=== PATIENT | female | born 1955 | race Caucasian/White ===

== ENCOUNTER → 2017-11-14 | Outpatient (CLI) | payer BC ==
--- NOTE | 2017-11-14 14:33 | US ---
EXAMINATION TYPE: US gallbladder DATE OF EXAM: 11/14/2017 COMPARISON: CT abdomen March 02, 2016 CLINICAL HISTORY: K81.9 Cholecystitis. EXAM MEASUREMENTS: Liver Length: 11.2 cm Gallbladder Wall: 0.1 cm CBD: 0.3 cm Right Kidney: 9.2 x 4.1 x 4.4 cm Pancreas: Visualized portions wnl, some portions obscured by overlying bowel gas on images saved Liver: wnl Gallbladder: No stones seen Evidence for sonographic Saleh's sign: No CBD: wnl Right Kidney: No hydronephrosis or masses seen IMPRESSION: No shadowing mobile gallstones or ultrasound evidence for acute cholecystitis.
--- NOTE | 2017-11-15 08:52 | NM ---
EXAMINATION TYPE: NM hepatobiliary w EF DATE OF EXAM: 11/14/2017 COMPARISON: Ultrasound gallbladder 11/14/2017 HISTORY: Cholecystitis TECHNIQUE: After the intravenous administration of 4.76 mCi Tc 99m Mebrofenin hepatobiliary scintigra phy is performed. Immediate images post injection. FINDINGS: There is satisfactory initial accumulation of tracer by the liver. The gallbladder is visualized wit hin 12 minutes. The small bowel activity is noted within 46 minutes. At one hour 8 ounces of oral e nsure plus is given to mimic CCK and gallbladder ejection fraction is calculated at 72 %, in the norm al range. Therefore there is no scintigraphic evidence of cystic or common bile duct obstruction to suggest acute cholecystitis or gallbladder dyskinesia. IMPRESSION: Exam is within normal limits.
== END | disposition home or self-care (01) ==
LOC: RADUSWWP 13:52
PROVIDERS: ATTEND Surgery Plastic and Reconstructive Surgery
DX: K81.9 Cholecystitis, unspecified (principal)
CPT/HCPCS: 76705; 78226; A9537

== ENCOUNTER → 2017-11-14 | Outpatient (CLI) | payer BC ==
[2017-11-14 14:55] LABS: HCT 43.4 % (34.0-46.0); HGB 13.7 gm/dL (11.4-16.0); MCH 29.8 pg (25.0-35.0); MCHC 31.6 g/dL (31.0-37.0); MCV 94.3 fL (80.0-100.0); Mean Platelet Volume 6.7; Platelet Count 224 k/uL (150-450); RDW 14.5 % (11.5-15.5)
[2017-11-14 15:06] LABS: Calcium 9.4 mg/dL (8.4-10.2)
== END | disposition home or self-care (01) ==
LOC: LABWHC1 13:50
PROVIDERS: ATTEND Internal Medicine Cardiovascular Disease
DX: E03.9 Hypothyroidism, unspecified (principal)
CPT/HCPCS: 36415; 80048; 80061; 84443; 85027

== ENCOUNTER 2018-01-09 09:54 | Day surgery (SDC) | payer BC ==
[2018-01-06 17:37] VITALS: BMI 18.5
[2018-01-09 11:10] VITALS: RESP 16; TEMP 98.6
[2018-01-09] MEDS ORDERED: LACTATED RINGERS 1,000 ML IV ONE (11:10)
[2018-01-09] MEDS ORDERED: PROPOFOL 10 MG/ML 20 ML VIAL IV ONE (11:41)
[2018-01-09] MEDS ORDERED: LIDOCAINE 1% INJ 10MG/ML (20 ML MDV) ONE (11:41)
[2018-01-09] MEDS ORDERED: IV FLUID CONTINUATION 700 ML IV ONE (12:10)
--- NOTE | 2018-01-09 12:14 | P.PCN ---
Date of Procedure: 01/09/18 Procedure(s) Performed: Procedure: Esophagogastroduodenoscopy and biopsy. Preoperative diagnosis: Nausea and weight loss. Postoperative diagnosis: 1. Small sliding hiatal hernia with no obvious esophagitis or complicated reflux disease. 2. Mild antral gastritis. 3. Multiple biopsies obtained from the duodenum, antrum and esophagus. Preparation sedation: Was provided by anesthesia. Brief clinical history: The patient is a 62-year-old female who is scheduled for this evaluation because of upper abdominal complaints. She describes feeling nausea but no vomiting. This has been going on for 1 year and she lost 10 pounds over that period of time. No change in her bowels or any bleeding. No dysphagia or other alarm symptoms. This evaluation is to assess for potential ulcer disease, reflux disease or other pathology. Procedure: With the patient on her left lateral decubitus position and after informed consent and adequate sedation, I passed the Olympus-GIF 160 video upper endoscope through the cricopharyngeus down the esophagus. GE junction was around 38 cm from the incisors and there was a small sliding hiatal hernia but no obvious esophagitis or complicated reflux disease. The endoscope was then passed into the stomach which was insufflated with air and inspected in detail including the retroflex view in the cardia. There was minimal mottling and erythema in the antrum but no ulcers or erosions. Pyloric channel, duodenal bulb, post bulbar area and descending duodenum appeared within normal limits. Because of her symptoms, I obtained biopsies from the duodenum, antrum and esophagus then the endoscope was withdrawn. The patient tolerated the procedure well. Plan: The patient was reassured. She will follow-up with you as planned and I will be happy to see in the office if her symptoms persist.
[2018-01-09 12:37] VITALS: BP 161/92; PULSE 79
== END 2018-01-09 12:55 | disposition home or self-care (01) ==
LOC: ORWHC2ENDO 09:54
DX: K29.70 Gastritis, unspecified, without bleeding (principal); K44.9 Diaphragmatic hernia without obstruction or gangrene; I10 Essential (primary) hypertension; Z79.899 Other long term (current) drug therapy
CPT/HCPCS: 88305; 43239; J2001; J2704

== ENCOUNTER → 2018-05-15 | Outpatient (CLI) | payer BC ==
--- NOTE | 2018-05-15 11:32 | CT ---
EXAMINATION TYPE: CT abdomen pelvis w con DATE OF EXAM: 05/15/2018 COMPARISON: Prior CT abdomen 03/02/2016 HISTORY: Epigastric abdominal pain CT DLP: 474 mGycm Automated exposure control for dose reduction was used. TECHNIQUE: Helical acquisition of images from the lung bases through the pelvis have been completed. CONTRAST: Performed with Oral Contrast and with IV Contrast, patient injected with 100 ml mL of Isovue 300. FINDINGS: LUNG BASES: No significant abnormality is appreciated. AORTA: No significant abnormality is appreciated. LIVER/GB: No significant abnormality is appreciated. PANCREAS: No significant abnormality is seen. SPLEEN: No significant abnormality is seen. ADRENALS: No significant abnormality is seen. KIDNEYS: Stable exophytic cystic focus at the lower pole of the left kidney, probable cortical cyst a lso associated with the right kidney are stable. REPRODUCTIVE ORGANS: There is a oval calcification measuring approximately 1 cm in the vaginal wall e chocardiogram representing calcified gland cyst. BOWEL: No significant abnormality is seen. Gastric wall thickening is indeterminate, there may be la ck of distention, difficult to exclude gastritis. At the level of the pelvic floor the right of midli ne there is herniation of portion of the sigmoid colon into the ischiorectal fat. FREE AIR: No Free Air visible. ASCITES: None visible. PELVIC ADENOPATHY: None visualized. RETROPERITONEAL ADENOPATHY: No Retroperitoneal Adenopathy visible. URINARY BLADDER: No significant abnormality is seen. OSSEOUS STRUCTURES: There is a scoliotic curvature to the thoracic lumbar spine, degenerative disc c hanges are noted. IMPRESSION: PELVIC FLOOR HERNIA IS PRESENT. FINDINGS IN THE STOMACH DESCRIBED. ADDITIONAL FINDINGS ABOVE.
== END | disposition home or self-care (01) ==
LOC: RADCTMAIN 06:52
PROVIDERS: ATTEND Internal Medicine
DX: K45.8 Other specified abdominal hernia without obstruction or gangrene (principal); R10.13 Epigastric pain; R31.9 Hematuria, unspecified
CPT/HCPCS: 74177; Q9967

== ENCOUNTER → 2018-09-25 | Outpatient (CLI) | payer BC ==
[2018-09-25 13:08] LABS: HCT 45.4 % (34.0-46.0); HGB 14.7 gm/dL (11.4-16.0); MCH 31.1 pg (25.0-35.0); MCHC 32.4 g/dL (31.0-37.0); Mean Platelet Volume 6.7; Platelet Count 316 k/uL (150-450); RBC 4.72 m/uL (3.80-5.40); RDW 15.4 % (11.5-15.5); WBC 6.2 k/uL (3.8-10.6)
[2018-09-25 13:21] LABS: Albumin 4.5 g/dL (3.5-5.0); Calcium 9.6 mg/dL (8.4-10.2); Potassium 4.2 mmol/L (3.5-5.1); Total Bilirubin 0.5 mg/dL (0.2-1.3); Total Protein 7.4 g/dL (6.3-8.2)
[2018-09-25 13:36] LABS: T4, Free (Free Thyroxine) 0.84 ng/dL (0.78-2.19)
--- NOTE | 2018-09-25 15:38 | US ---
EXAMINATION TYPE: US thyroid st tissue head/neck DATE OF EXAM: 09/25/2018 COMPARISON: 2010 CLINICAL HISTORY: E04.9 GOITER. Hoarseness multi nodular thyroid GLAND SIZE: Right Lobe: 5.0 x 2.1 x 1.2 cm Overall Parenchyma: heterogenous Left Lobe: 4.6 x 2.0 x 1.3 cm Overall Parenchyma: heterogeneous Isthmus Thickness: 0.3 cm NODULES RIGHT: # of nodules measured on right: 2 1. 1.4 X 0.7 x 1.3 cm solid nodule at the lower pole with well-defined margins; . This nodule is w ider than tall and shows intranodular vascularity. Prior size: 1.8 x 1.2 x 1.5 cm 2. 0.5 X 0.4 x 0.6 cm mixed nodule at the mid pole with well-defined margins; . This nodule is wide r than tall and shows intranodular vascularity. Prior size: 0.9 x 0.7 x 0.9 cm LEFT: # of nodules measured on left: 2 1. 1.0 X 0.8 x 0.7 cm echogenic nodule at the lower pole with well-defined margins; . This nodule i s wider than tall and shows intranodular vascularity. Prior size: 1.0 x 0.7 x 1.0 cm 2. 1.0 X 0.7 x 0.8 cm solid nodule at the mid pole with well-defined margins; . This nodule is wide r than tall and shows intranodular vascularity. Prior size: 1.2 x 0.9 x 1.0 cm ISTHMUS: # of nodules measured in the isthmus: 0 Bilateral neck scanned, no evidence of lymphadenopathy. IMPRESSION: Multiple thyroid nodules are similar to slightly smaller in size compared to prior exam.
== END | disposition home or self-care (01) ==
LOC: RADUSWWP 12:31
PROVIDERS: ATTEND Internal Medicine Endocrinology, Diabetes & Metabolism
DX: E04.2 Nontoxic multinodular goiter (principal); E04.9 Nontoxic goiter, unspecified; R63.4 Abnormal weight loss; R35.8 Other polyuria; R53.83 Other fatigue; R73.09 Other abnormal glucose
CPT/HCPCS: 36415; 76536; 80053; 82024; 82533; 82607; 83036; 84146; 84439; 84443; 84481; 84681; 85027

== ENCOUNTER → 2018-10-10 | Outpatient (CLI) | payer BC | LOC: LABWHC1 10:15 | PROVIDERS: ATTEND Internal Medicine Endocrinology, Diabetes & Metabolism | DX: R73.09 Other abnormal glucose (principal); R53.83 Other fatigue; E04.9 Nontoxic goiter, unspecified; R63.4 Abnormal weight loss | CPT/HCPCS: 36415; 82947; 84439; 84443; 84481; 84681 ==

== ENCOUNTER → 2018-10-17 | Outpatient (CLI) | payer BC ==
--- NOTE | 2018-10-17 16:19 | FL ---
EXAMINATION TYPE: FL barium swallow DATE OF EXAM: 10/17/2018 CLINICAL HISTORY: Dysphagia food sticking in throat TECHNIQUE: A double contrast esophagram is performed utilizing air and barium. A total of 45 second s of fluoroscopic time was utilized during procedure. Images: 10 COMPARISON: None FINDINGS: Esophagus dilates to normal caliber has normal contour to the gastroesophageal junction. Ga stroesophageal junction opens to normal caliber. No intraluminal or extramural defects are evident. C ontrast passes through the gastroesophageal junction without hesitancy. Couple mild tertiary contract ions are evident during the exam. IMPRESSION: 1. Mild distal presbyesophagus. 2. Otherwise normal esophagram.
== END | disposition home or self-care (01) ==
LOC: RADUSWWP 09:43
PROVIDERS: ATTEND Otolaryngology
DX: K22.8 Other specified diseases of esophagus (principal); R13.10 Dysphagia, unspecified
CPT/HCPCS: 74220

== ENCOUNTER → 2018-10-28 | Outpatient (CLI) | payer BC ==
[2018-10-28 14:55] VITALS: BP 143/90; PULSE 68; RESP 18; TEMP 98.2; BMI 17.2
--- NOTE | 2018-10-28 17:50 | P.HPOB ---
History of Present Illness H&P Date: 10/28/18 Chief Complaint: The patient is here for her routine gynecologic exam and ma mmogram. This is a 63-year-old G3 PIII with an LMP of 2004. The patient is status post vaginal hysterectomy for benign reasons. It has been more than 10 years since her last pelvic exam. She states she had an episode of short but vaginal bleeding about 1 1/2 months ago. She noticed some blood trickling down her leg from the vaginal area after a shower. She denies any recent sexual activity or placing anything into the vagina. She has not had bleeding before or after that episode. She does experience some night sweats in the middle of the night. She also occasionally has sweats during the day. Review of Systems She has lost about 20 pounds over the past couple of years. Her weight has been stable more recently. She denies respiratory or cardiac problems. G.I.: she states sometimes it feels like the food wants to come back up after she eats. She denies vomiting. Past Medical History Past Medical History: COPD, Diabetes Mellitus, GERD/Reflux, Hypertension, Thyroid Disorder Additional Past Medical History / Comment(s): "Borderline diabetes", interstitial cystitis, possible hyperthyroidism, varicose veins. PAST AUTOMOTIVE SALES EXECUTIVE HISTORY: She has no history of STDs. History of Any Multi-Drug Resistant Organisms: None Reported Past Surgical History: Hysterectomy, Orthopedic Surgery, Tubal Ligation Additional Past Surgical History / Comment(s): HEMORRHOIDECTOMY. NASAL FX REPAIR. EXC POLYPS IN THROAT. RT WRIST GANGLION CYST. RT ROTATOR CUFF SURG. Vaginal hysterectomy. 3 breast biopsies Past Anesthesia/Blood Transfusion Reactions: Postoperative Nausea & Vomiting (PONV) Additional Past Anesthesia/Blood Transfusion Reaction / Comment(s): OCC SL NAUSEA. Past Psychological History: No Psychological Hx Reported Smoking Status: Current every day smoker (1 pack per day) Past Alcohol Use History: Occasional (8-10 per week) Additional Past Alcohol Use History / Comment(s): SMOKES 1PPD, FOR 30 YEARS Past Drug Use History: Marijuana Additional Drug Use History / Comment(s): occaisional Additional History: She is and has been with her boyfriend since approximately 1998. They do not live together and are infrequently sexually active. She works in a factory. - Past Family History Mother Family Medical History: Cancer Additional Family Medical History / Comment(s): Colon cancer. Sister(s) Additional Family Medical History / Comment(s): Colon Polyps. Father Family Medical History: CVA/TIA, Diabetes Mellitus Additional Family Medical History / Comment(s): Paternal aunt had breast cancer. Medications and Allergies Home Medications Medication Instructions Recorded Confirmed Type Lansoprazole 30 mg PO DAILY 01/06/18 10/28/18 History amLODIPine BESYLATE [Norvasc] 5 mg PO BID 01/06/18 10/28/18 History Allergies Allergy/AdvReac Type Severity Reaction Status Date / Time No Known Allergies Allergy Verified 10/28/18 14:55 Exam Vital Signs Temp Pulse Resp BP Pulse Ox 10/28/18 14:32 98.2 F 68 18 143/90 100 Intake and Output 10/28/18 10/28/18 10/28/18 06:59 14:59 22:59 Other: Weight 45.359 kg Height 5'4", weight 100 pounds, BMI 17.2. This is a well-developed well-nourished thin white female who is alert and oriented times 3 in no acute distress. HEENT: Within normal limits. NECK: Supple without mass or thyromegaly. CHEST AND LUNGS: Clear to auscultation. HEART: Regular rate and rhythm. BREASTS: Are without mass or discharge. AXILLARY EXAM: Negative for adenopathy. BACK: Negative for CVA tenderness. ABDOMEN: Soft, nontender, with a palpable liver in the right upper quadrant. The liver is smooth and nontender.it is felt that the liver is more palpable secondary to her thin stature. palpable masses. PELVIC EXAM: External genitalia appears normal with mild to moderate atrophy. Near the left introitus there is a very small benign appearing mucosal contusion measuring approximately 2 mm that has the appearance of a small amount of blood beneath the surface of a mucosal tag. There is no active bleeding. Vagina otherwise appears normal with mild to moderate atrophy. There is no evidence of prolapse. Bimanual examination is negative for mass or tenderness. RECTAL EXAM: Rectovaginal exam is negative for mass or tenderness and is negative for occult blood. EXTREMITIES: Nontender. Additional studies: CT scan of the abdomen and pelvis was done 05/15/2018. This showed a possible hernia to the right issue rectal fat. There was also a 1 cm vaginal wall calcification IMPRESSION: 1. 63-year-old menopausal female status post vaginal history before benign reasons. 2. Brief episode of bleeding from the vaginal area about 1 1/2 months ago. 3. Very small benign mucosal contusion measuring 2 mm near the left introitus which may represent a scratched mucosal area that may or may not have been related to the brief bleeding that she experienced. PLAN: 1. Pap smear of the vaginal cuff was obtained because of the post hysterectomy bleeding episode. 2. Self breast awareness was discussed with the patient. 3. Screening mammogram will be done today. 4. She was instructed to call if she has recurrent vaginal bleeding. 5. Osteoporosis prevention was discussed. I have stressed the importance of adequate calcium, vitamin D and regular exercise. Recommended amounts of calcium and vitamin D were also discussed. I have recommended bone density testing and the order slip was given to the patient for this. 6. I have recommended that she tried to quit smoking and we have discussed many reasons for why this is important. 7. She will follow-up with her primary care physician regarding other symptoms and medical problems such as her weight loss. 8. She will return in one year and PRN.
--- NOTE | 2018-10-30 08:36 | MM ---
Reason for exam: screening (asymptomatic). Last mammogram was performed 2 years and 7 months ago. History: Patient is postmenopausal and history of other cancer. Family history of breast cancer in paternal aunt at age 50 and premenopausal breast cancer in paternal aunt at age 40. Excisional biopsy of the right breast, February 09, 2005. Benign excisional biopsy of the left breast. Benign excisional biopsy of the right breast. Took hormonal contraceptives for 1 month beginning at age 18. Taking estrogen for 12 years beginning at age 48. Physical Findings: A clinical breast exam by your physician is recommended on an annual basis and results should be correlated with mammographic findings. MG Screening Mammo w CAD Bilateral CC and MLO view(s) were taken. Prior study comparison: March 20, 2016, bilateral MG work up mamm w CAD BILAT. March 16, 2016, bilateral MG screening mammo w CAD. There are scattered fibroglandular densities. Benign appearing calcifications in the left breast. There is no discrete abnormality. No significant changes when compared with prior studies. ASSESSMENT: Benign, BI-RAD 2 RECOMMENDATION: Routine screening mammogram of both breasts in 1 year.
== END | disposition home or self-care (01) ==
LOC: WWCWWP 14:24
PROVIDERS: ATTEND Obstetrics & Gynecology
DX: Z12.31 Encounter for screening mammogram for malignant neoplasm of breast (principal)
CPT/HCPCS: 77067

== ENCOUNTER → 2018-10-31 | Outpatient (CLI) | payer BC ==
[2018-10-31 16:32] LABS: HCT 39.1 % (34.0-46.0); HGB 12.7 gm/dL (11.4-16.0); MCHC 32.4 g/dL (31.0-37.0); MCV 98.6 fL (80.0-100.0); Platelet Count 231 k/uL (150-450); RBC 3.96 m/uL (3.80-5.40); RDW 15.3 % (11.5-15.5); WBC 7.5 k/uL (3.8-10.6)
== END | disposition home or self-care (01) ==
LOC: LABPAT 15:23
PROVIDERS: ATTEND Otolaryngology
DX: Z01.812 Encounter for preprocedural laboratory examination (principal)
CPT/HCPCS: 85027

== ENCOUNTER 2018-11-07 09:17 | Day surgery (SDC) | payer BC ==
[2018-11-05 11:49] VITALS: BMI 17.2
--- NOTE | 2018-11-07 00:18 | HP ---
HISTORY AND PHYSICAL CHIEF COMPLAINT: Chronic laryngitis in bilateral larynx. Bilateral true vocal cord lesions. HISTORY OF PRESENT ILLNESS: This patient is a 63-year-old female who was recently seen in my office for evaluation of chronic laryngitis. The patient states that she has had intermittent hoarseness for the past year. She has previously had a suspension microlaryngoscopy for polyps. She smokes approximately 1 pack to 1-1/2 pack and a half cigarettes per day and was advised to stop for obvious health reasons. She denies any dysphagia or referred otalgia. She does have difficulty breathing and has been told that she has early COPD. At the time that she was seen in my office, clinical examination including indirect laryngoscopy and a video stroboscopy reveal evidence of bilateral true vocal cord lesions. Because of that, this patient has history of heavy smoking and the concern of a possible laryngeal malignancy, it was recommended that the patient that the patient undergo a suspension microlaryngoscopy with biopsy and possible CO2 laser of lesion/lesions of the true vocal cords under general anesthesia. PAST SURGERY HISTORY: Reveals previous surgeries include suspension microlaryngoscopy with vocal cord stripping, tubal ligation, total abdominal hysterectomy, hemorrhoidectomy, D and C times x1, trigger finger release, multiple skin cancers removed, bilateral benign breast biopsies, surgery for a broken nose, repair of a torn rotator cuff. The patient is 3 para 3 0 miscarriage. CURRENT MEDICATIONS: Include Amlodipine. REVIEW OF SYSTEMS: Review of systems reveals the cardiovascular system is positive for hypertension. The remainder of the review of systems is essentially unremarkable. PHYSICAL EXAMINATION: This patient is a 58-year-old female who was alert and cooperative. HEENT examination: Patient is normocephalic. Tympanic membranes are normal. Middle ear spaces are free of any fluid or infection. Pupils equal, round, reactive to light and accommodation. Extraocular movements are within normal limits. Intranasal examination reveals moderate to severe septal deviation with compensatory hypertrophy of the inferior turbinates and a moderate amount of clear mucus on the mucous membranes and draining down the posterior pharynx. Findings of the larynx are as described above. Above in the history, physical exam and will not be repeated. Palpation of the neck is negative. The neck masses or lymphadenopathy. Cranial nerves 2 through 12 and remainder of the head and neck exam are within normal limits. Chest/ cardiovascular: Both lung barcenas are clear. Lung sounds are somewhat distant, but there are no wheezes, rhonchi, or rales. The patient is in regular sinus rhythm. S1, S2 are present without evidence of any murmurs, S3s or S4s. Peripheral pulses are bilaterally symmetrical and within normal limits. ABDOMEN: There is no evidence of any masses, megaly, or tenderness. ABDOMEN: Soft. Skin is unremarkable. Musculoskeletal/neurological are within normal limits. Pelvic/ rectal examination exam is deferred at this time because the patient has this done on a regular basis at her family physician's office. The remainder of the physical exam is essentially unremarkable. IMPRESSION: Chronic laryngeal with bilateral laryngeal lesions, suspect malignancy. PLAN: The patient is scheduled for scheduled undergo a suspension microlaryngoscopy with biopsy of laryngeal lesions and possible CO2 laser of laryngeal lesion under general anesthesia. Attention RNs in the pre-surgical area: The only pre-surgical prophylactic antibiotic I have ordered for this patient received is Ancef 2 g IV to be given once an intravenous line has been established. If the pharmacy department sends a different antibiotic or combination of antibiotics to the pre-surgical area for this patient as prophylactic antibiotic, please return that medication to the pharmacy department and cancel that order. Also please make sure that the patient's account is credited appropriately. I have discussed the risks, benefits and alternative therapies for the above-mentioned procedure and for both sedation/analgesia as well as necessary blood product administration, if indicated, as they pertain to this patient. The patient has indicated his or her understanding and acceptance of the risks and procedures discussed. MMODL / IJN: [id number] /
[~2018-11-07 09:17] MED LIST: DEXAMETHASONE SOD PHOSPHATE 10 MG/ML 1 ML VIAL IV ONE; HYDROmorphone 0.5 MG/0.5 ML SYRINGE IVP PRN; LACTATED RINGERS 1,000 ML IV SCH; ONDANSETRON 4 MG/2 ML VIAL IVP ONE; Pre Op ABX Message 1 EACH MISC MISCELLANE ONE
[2018-11-07] MEDS ORDERED: LIDOCAINE 1% 20 ML VIAL (10MG/ML) FOR IV START INTRADERMA ONE ×2 (10:24→10:27)
[2018-11-07] MEDS ORDERED: NEOSTIGMINE 1 MG/ML 10 ML VIAL ONE (11:42)
[2018-11-07] MEDS ORDERED: SUCCINYLCHOLINE CHLORIDE 100 MG/5 ML SYR IV ONE (11:42)
[2018-11-07] MEDS ORDERED: DEXAMETHASONE SOD PHOS (MDV) 100 MG/10 ML VIAL ONE (11:42)
[2018-11-07] MEDS ORDERED: MIDAZOLAM 2 MG/2 ML VIAL ONE (11:42)
[2018-11-07] MEDS ORDERED: fentaNYL (PF) 50 MCG/ML 2 ML AMP ONE (11:42)
[2018-11-07] MEDS ORDERED: GLYCOPYRROLATE 0.2 MG/ML 2 ML VIAL ONE (11:42)
[2018-11-07] MEDS ORDERED: PROPOFOL 10 MG/ML 20 ML VIAL IV ONE (11:42)
[2018-11-07] MEDS ORDERED: ROCURONIUM BROMIDE 10 MG/ML 10 ML VIAL IV ONE (11:42)
[2018-11-07] MEDS ORDERED: LACTATED RINGERS 1,000 ML IV ONE (12:19)
[2018-11-07 12:56] VITALS: TEMP 97.7
[2018-11-07] MEDS ORDERED: ONDANSETRON 4 MG/2 ML VIAL IVP ONE (13:02)
[2018-11-07] MEDS ORDERED: hydrALAZINE HCL 20 MG/ML 1 ML VIAL IVP ONE (13:26)
[2018-11-07 14:05] VITALS: RESP 18
[2018-11-07 14:30] VITALS: BP 125/83; PULSE 83
--- NOTE | 2018-11-08 15:35 | OP ---
OPERATIVE REPORT PREOPERATIVE DIAGNOSIS: Bilateral true vocal cord lesions, final pathology pending. POSTOPERATIVE DIAGNOSES: Bilateral true vocal cord lesions, final pathology pending. ANESTHESIA: General. PROCEDURE: Suspension microlaryngoscopy with biopsy of right and left true vocal cord lesions and subsequent CO2 laser vaporization of lesion of the left true vocal cord only. SURGEON: Dr. Caruso. COMPLICATIONS: None. OPERATIVE PROCEDURE: The patient is placed operating table supine position. After uneventful induction and endotracheal intubation, satisfactory general anesthesia was obtained. Next, the patient's head was draped in usual customary fashion. Next, using the proper laryngoscope, this was introduced into the oropharynx after applying a mouth guard in the usual fashion. The entire hypopharynx including the right and left piriform sinuses, base of tongue, vallecula, and epiglottis were inspected and found to be free of any suspicious lesions. The tip of the laryngoscope was positioned at the laryngeal introitus and elevated thus exposing both true vocal cords. Immediately once seated, both true vocal cords were involved would lesions. The Lewy apparatus was attached to the handle of the laryngoscope and the laryngoscope was suspended on the patient's chest. Next, using the Zeiss operating microscope and under direct magnification, one could see the large lesions on the right and left true vocal cords. Both lesions, initially the left and subsequently the right, were biopsied with specimens being marked and sent in formalin to pathology for permanent sectioning. Next, using the CO2 laser wand, the lesion on the left true vocal cord was vaporized. Initially prior to using the wand, the patient's actual airway was definitely somewhat compromised because of the size of these lesions. Using the wand on a 10 carbajal setting continuous, the lesion was carefully vaporized in a manner so as not to injure the underlying vocalis muscle. Once the lesion was completely vaporized, the patient had a definite improvement in her airway. The right lesion was not lasered because doing so might cause the patient to develop a laryngeal web. There is plan to bring her back in approximately 4-6 weeks and if the biopsy is negative, then the lesion on the right true vocal cord will be lasered. It turns out to be a malignancy, then certainly further treatment will be necessary. The patient was given 10 mg of Decadron intraoperatively to reduce any postoperative edema of the larynx. In addition this because she is a heavy smoker of 1+ pack of cigarettes per day and has a history of COPD/emphysema, she was also given 2 g of Ancef intraoperatively. At this point, the procedure was terminated. All specimens were sent in formalin marked right and left true vocal cord biopsies to the pathology department for permanent sectioning. The patient tolerated the procedure well and was returned to recovery room in satisfactory condition. Final pathology is pending. SKY / MICHELL: [id number] /
== END 2018-11-07 14:35 | disposition home or self-care (01) ==
LOC: OR 09:17
PROVIDERS: ATTEND Otolaryngology
DX: J38.3 Other diseases of vocal cords (principal); J44.9 Chronic obstructive pulmonary disease, unspecified; F17.210 Nicotine dependence, cigarettes, uncomplicated; I10 Essential (primary) hypertension; E11.9 Type 2 diabetes mellitus without complications; K21.9 Gastro-esophageal reflux disease without esophagitis; J34.2 Deviated nasal septum; J34.3 Hypertrophy of nasal turbinates; M19.90 Unspecified osteoarthritis, unspecified site; E07.9 Disorder of thyroid, unspecified; Z97.2 Presence of dental prosthetic device (complete) (partial); N30.10 Interstitial cystitis (chronic) without hematuria; Z79.890 Hormone replacement therapy; Z79.899 Other long term (current) drug therapy; Z90.710 Acquired absence of both cervix and uterus; Z98.51 Tubal ligation status; Z85.828 Personal history of other malignant neoplasm of skin
CPT/HCPCS: 31541; 31536; 88305; J2250; J0360; J1100 ×2; J2710; J0690; J2405; J3010; J0330; J2704

== ENCOUNTER → 2018-11-21 | Outpatient (CLI) | payer BC ==
--- NOTE | 2018-11-24 20:27 | BD ---
EXAMINATION TYPE: Axial Bone Density DATE OF EXAM: 11/21/2018 COMPARISON: NONE CLINICAL HISTORY: 63-year-old female postmenopausal screening Height: 5 FT 1 IN Weight: 103 FRAX RISK QUESTIONS: History of Fracture in Adulthood: YES Secondary Osteoporosis: Current Tobacco Use: YES RISK FACTORS HISTORY OF: Surgery to Spine/Hip(right/left)/Wrist (right/left): GANGLION CYST ON RT WRIST When: A CHILD Active: YES Postmenopausal woman: TOTAL HYST AGE 49 Take estrogen and/or progesterone medications: TOOK HRT FOR 10 YEARS NOT NOW Lost more than 2 inches in height since high school: YES MEDICATIONS: Thyroid Medications: YES Which medication: ? How Long: LESS THAN TWO MONTHS Additional Medications: LODIPINE BESYLATE, THYROID MEDS, BLADDER MEDS , Additional History: PT HAD LESIONS REMOVED FROM HER THROAT THIS LAST WEEK THAT WERE PRE CANCEROUS EXAM MEASUREMENTS: Bone mineral densitometry was performed using the Axentra System. Bone mineral density as measured about the Lumbar spine is: ----- L1-L4(G/cm2): 1.206 T Score Values are as follows: ----- L2: 1.4 ----- L3: 0.2 ----- L4: -0.1 ----- L1-L4: 0.2 BASELINE Bone mineral density about the R hip (g/cm2): 0.850 Bone mineral density about the L hip (g/cm2): 0.813 T Score values are as follows: -----R Neck: -1.4 -----L Neck: -1.6 -----R Total: -1.0 -----L Total: -1.1 BASELINE IMPRESSION: Osteopenia (T Score between -2.5 and -1). There is slightly increased risk of fracture and the patient may be considered for treatment. Re-Screen 2-5 years. NOTE: T-SCORE=SD OF THE YOUNG ADULT MEAN.
== END | disposition home or self-care (01) ==
LOC: RADBDWWP 15:36
PROVIDERS: ATTEND Obstetrics & Gynecology
DX: M85.80 Other specified disorders of bone density and structure, unspecified site (principal); Z78.0 Asymptomatic menopausal state
CPT/HCPCS: 77080

== ENCOUNTER 2018-12-19 09:46 | Day surgery (SDC) | payer BC ==
[2018-12-16 15:43] VITALS: BMI 18.8
--- NOTE | 2018-12-19 05:14 | HP ---
HISTORY AND PHYSICAL CHIEF COMPLAINT: Chronic laryngitis with right true vocal cord nodule/polyp. HISTORY OF PRESENT ILLNESS: This patient is a 63-year-old female who has been seen in my office for evaluation of chronic laryngitis in the past. She recently underwent a suspension microlaryngoscopy for biopsy of lesions of the true vocal cords. At that time, it was noted that there was significant polypoid changes and as well as evidence of severe dysplasia of the cellular structure. At the time of that surgery, the left true vocal cord in addition to being biopsied was lasered. The patient is a heavy smoker of 1 pack to 1-1/2 packs of cigarettes a day and is currently in the process of quitting. At the time of her surgery, it was noted that she had bilateral vocal cord lesions and only the left true vocal cord was lasered. She is brought back to surgery at this time to complete the procedure by lasering the right true vocal cord under general anesthesia. PAST SURGERY HISTORY: Past medical history reveals previous surgeries include suspension microlaryngoscopy with biopsy of vocal cords and laser x2, tubal ligation, trigger finger release, multiple skin cancers removed, total abdominal hysterectomy, tubal ligation, hemorrhoidectomy, D and C x1, bilateral benign breast biopsies, surgery for broken nose and repair of a torn rotator cuff. The patient is 3 , 3 para, 0 miscarriage. Current medications include amlodipine. The patient has been has been diagnosed with early COPD, although she is not on any medication for this. REVIEW OF SYSTEMS: Review of systems reveals that the cardiovascular system is positive for hypertension. Respiratory is positive for COPD/emphysema. The remainder of review of systems is unremarkable. OBJECTIVE: HEENT: The patient is normocephalic. Tympanic membranes are normal. Middle ear space is free of any fluid or infection. Pupils are equal, round, reactive to light and accommodation. Extraocular movements are within normal limits. Intranasal examination reveals moderate to severe septal deviation with compensatory hypertrophy of the inferior turbinates and a moderate amount of mucus on the mucous membranes and draining down the posterior pharynx. Examination of oropharynx including indirect laryngoscopy reveals a large polypoid lesion on the right true vocal cord. The left vocal cord is healed quite nicely. Palpation of the neck, cranial nerves 2 through 12 and the remainder of the head and neck exam are within normal limits. CHEST/CARDIOVASCULAR: Both lung barcenas are clear to percussion and auscultation. The patient is in regular sinus rhythm. S1 and S2 are present without evidence of any murmurs, S3s, or S4s. Peripheral pulses are bilaterally symmetrical and within normal limits. ABDOMEN: There is no evidence of any masses, megaly, or tenderness. The abdomen is soft. Skin is unremarkable. Musculoskeletal and neurological are all within normal limits. PELVIC/RECTAL EXAM: The pelvic rectal exam is deferred at this time because the patient has this done on a regular basis at her family physician's office. The remainder of the physical exam was essentially unremarkable. IMPRESSION: Chronic laryngitis with polypoid lesion of the right true vocal cord. PLAN: The patient is scheduled to undergo a suspension microlaryngoscopy with laser of lesion of the right true vocal cord under general anesthesia. ATTENTION RNS IN THE PRE-SURGICAL AREA: I have not ordered any pre-surgical prophylactic antibiotics for this patient. If the pharmacy department sends any pre- surgical prophylactic antibiotics to the pre-surgical area for this patient, that order should be cancelled and the medication should be returned to the pharmacy department. Please make sure that the patient's account is credited appropriately. Also, I have ordered for this patient to receive 1000 mg of Ofirmev IV to be given once an intravenous line has been established. I have discussed the risks, benefits and alternative therapies for the above-mentioned procedure and for both sedation/analgesia as well as necessary blood product administration, if indicated, as they pertain to this patient. The patient has indicated his or her understanding and acceptance of the risks and procedures discussed. MMODL / IJN: [id number] /
[2018-12-19] MEDS ORDERED: SCOPOLAMINE 1.5MG/72HR PATCH TRANSDERM ONE (10:45)
[2018-12-19] MEDS ORDERED: LIDOCAINE 1% 20 ML VIAL (10MG/ML) FOR IV START INTRADERMA ONE (10:45)
[2018-12-19] MEDS ORDERED: ACETAMINOPHEN IV (For NPO) 1,000 MG in EMPTY BAG 1 BAG IVPB ONE (10:50)
[2018-12-19 11:00] LABS: Glucose,Whole Blood 105 mg/dL (75-99)
[2018-12-19] MEDS ORDERED: GLYCOPYRROLATE 0.2 MG/ML 2 ML VIAL ONE (11:19)
[2018-12-19] MEDS ORDERED: NEOSTIGMINE 1 MG/ML 10 ML VIAL ONE (11:19)
[2018-12-19] MEDS ORDERED: fentaNYL (PF) 50 MCG/ML 2 ML AMP ONE (11:19)
[2018-12-19] MEDS ORDERED: ePHEDrine SULFATE/0.9% NACL/PF 50 MG/5 ML SYRINGE IV ONE (11:19)
[2018-12-19] MEDS ORDERED: SUCCINYLCHOLINE CHLORIDE 100 MG/5 ML SYR IV ONE (11:19)
[2018-12-19] MEDS ORDERED: ROCURONIUM BROMIDE 10 MG/ML 10 ML VIAL IV ONE (11:19)
[2018-12-19] MEDS ORDERED: MIDAZOLAM 2 MG/2 ML VIAL ONE (11:19)
[2018-12-19] MEDS ORDERED: PROPOFOL 10 MG/ML 20 ML VIAL IV ONE (11:19)
[2018-12-19] MEDS ORDERED: LIDOCAINE 1% INJ 10MG/ML (20 ML MDV) ONE (11:19)
[2018-12-19] MEDS ORDERED: LACTATED RINGERS 1,000 ML IV ONE (12:08)
[2018-12-19 12:18] VITALS: TEMP 97.9
[2018-12-19 12:59] VITALS: RESP 20
[2018-12-19 13:45] VITALS: BP 133/81; PULSE 66
--- NOTE | 2018-12-22 00:55 | OP ---
OPERATIVE REPORT DATE OF SURGERY: 12/19/2018. PREOP DIAGNOSIS: Right true vocal cord nodule/polyp. POSTOP DIAGNOSIS: Right true vocal cord nodule/polyp. ANESTHESIA: General. OPERATIVE PROCEDURE: Suspension microlaryngoscopy with laser of a right true vocal cord polyp/nodule. OPERATING SURGEON: Dr. Caruso. COMPLICATIONS: None. ESTIMATED BLOOD LOSS: Less than 1 mL. OPERATIVE PROCEDURE: The patient is placed on operating table in supine position. After uneventful induction and endotracheal intubation, satisfactory general anesthesia was obtained. Next, the patient was draped in usual customary fashion. Following this, the laryngoscope was then introduced into the oropharynx and the entire hypopharynx including the right and left piriform sinuses, base of tongue, vallecula, and epiglottis were inspected and found to be free of any suspicious lesions. Next, the tip of the laryngoscope was placed at the laryngeal introitus. The Lewy apparatus was attached to the handle of the laryngoscope and the laryngoscope was suspended on the patient's chest. Next, using the Zeiss operating microscope and under direct visualization, the right true vocal cord was visualized and the nodule/polypoid lesion was also visualized. Next, using the laser wand, this lesion was completely vaporized at the appropriate setting of 5 carbajal continuous. Inspection of the left true vocal cord revealed that it was free of any nodules or polyps. At this point, the procedure was terminated. The patient was given 10 mg of Decadron intraoperatively to reduce any postop operative laryngeal edema. The patient tolerated the procedure well and was returned to the recovery room in satisfactory condition. MMODL / IJN: [id number] /
== END 2018-12-19 13:51 | disposition home or self-care (01) ==
LOC: OR 09:46
PROVIDERS: ATTEND Otolaryngology
DX: J38.2 Nodules of vocal cords (principal); J37.0 Chronic laryngitis; I10 Essential (primary) hypertension; J44.9 Chronic obstructive pulmonary disease, unspecified; E07.9 Disorder of thyroid, unspecified; E11.9 Type 2 diabetes mellitus without complications; K21.9 Gastro-esophageal reflux disease without esophagitis; F17.210 Nicotine dependence, cigarettes, uncomplicated; Z79.899 Other long term (current) drug therapy; Z98.51 Tubal ligation status; Z90.710 Acquired absence of both cervix and uterus; Z98.890 Other specified postprocedural states
CPT/HCPCS: 31599; J2250; J1100; J2710; J2405; J2001; J3010; J0330; J2704

== ENCOUNTER → 2019-09-11 | Outpatient (CLI) | payer BC ==
--- NOTE | 2019-09-11 22:07 | US ---
EXAMINATION TYPE: US kidneys/renal and bladder DATE OF EXAM: 09/11/2019 COMPARISON: CT 03/02/2016, ultrasound 03/23/2016 CLINICAL HISTORY: N18.2 chronic kidney disease, stage 2. Hx renal cysts EXAM MEASUREMENTS: Right Kidney: 8.6 x 4.3 x 4.0 cm Left Kidney: 9.0 x 4.5 x 3.9 cm Right Kidney: Cystic appearing lesions visualized. Largest measured. 1- Lateral/mid= 1.2 x 1.1 x 1 .2 cm. 2- lateral/lower= 0.9 x 0.8 x 0.7 cm Left Kidney: Pedunculated lower pole lateral cystic appearing lesion = 2.0 x 1.7 x 1.4 cm Bladder: distended, anechoic Bilateral Jets seen The study is compared with 03/23/2016 ultrasound. Findings have a more benign appearance without susp icious interval growth or other changes. IMPRESSION: 1. Bilateral renal cysts appear more simple on the current examination than prior studies. Recommend continued monitoring with ultrasound.
== END | disposition home or self-care (01) ==
LOC: RADUSWWP 16:16
PROVIDERS: ATTEND Family Medicine
DX: Q61.02 Congenital multiple renal cysts (principal); N18.2 Chronic kidney disease, stage 2 (mild)
CPT/HCPCS: 76770

== ENCOUNTER 2019-11-25 08:51 | Day surgery (SDC) | payer BC ==
[2019-11-23 08:41] VITALS: BMI 19.2
[~2019-11-25 08:51] MED LIST changes: -DEXAMETHASONE SOD PHOSPHATE 10 MG/ML 1 ML VIAL IV ONE; -HYDROmorphone 0.5 MG/0.5 ML SYRINGE IVP PRN; -ONDANSETRON 4 MG/2 ML VIAL IVP ONE; -Pre Op ABX Message 1 EACH MISC MISCELLANE ONE
[2019-11-25 09:08] VITALS: TEMP 97.1
[2019-11-25] MEDS ORDERED: LIDOCAINE 1% (10MG/ML) FOR IV START INTRADERMA ONE (09:08)
[2019-11-25 09:57] LABS: Glucose,Whole Blood 91 mg/dL (75-99)
[2019-11-25] MEDS ORDERED: PROPOFOL 10 MG/ML 20 ML VIAL IV ONE (10:03)
--- NOTE | 2019-11-25 10:03 | P.GSHP ---
History of Present Illness H&P Date: 11/25/19 CHIEF COMPLAINT: GERD HISTORY OF PRESENT ILLNESS: The patient is a 64-year-old female who presents reports gastroesophageal reflux disease. Upper endoscopy was offered for further evaluation and management. PAST MEDICAL HISTORY: Please see list. PAST SURGICAL HISTORY: Please see list. MEDICATIONS: Please see list. ALLERGIES: Please see list. SOCIAL HISTORY: No illicit drug use FAMILY HISTORY: No reports of Crohn disease or ulcerative colitis. REVIEW OF ORGAN SYSTEMS: CONSTITUTIONAL: No reports of fevers or chills. GI: Denies any blood in stools or constipation. PHYSICAL EXAM: VITAL SIGNS: Stable GENERAL: Well-developed and pleasant in no acute distress. HEENT: No scleral icterus. Extraocular movements grossly intact. Moist buccal mucosa. NECK: Supple without lymphadenopathy. CHEST: Unlabored respirations. Equal bilateral excursions. CARDIOVASCULAR: Regular rate and rhythm. Distal 2+ pulses. ABDOMEN: Soft, nondistended. MUSCULOSKELETAL: No clubbing, cyanosis, or edema. ASSESSMENT: 1. Gastroesophageal reflux disease PLAN: 1. Recommend proceeding with an upper endoscopy Past Medical History Past Medical History: COPD, Diabetes Mellitus, GERD/Reflux, Hypertension, Memory Impairment, Renal Disease, Thyroid Disorder Additional Past Medical History / Comment(s): "Borderline diabetes", interstitial cystitis, varicose veins, Stage 2 Kidney Failure. History of Any Multi-Drug Resistant Organisms: None Reported Past Surgical History: Breast Surgery, Hysterectomy, Orthopedic Surgery, Tubal Ligation Additional Past Surgical History / Comment(s): HEMORRHOIDECTOMY. NASAL FX REPAIR. EXC POLYPS IN THROAT. RT WRIST GANGLION CYST. RT ROTATOR CUFF SURG. 3 breast biopsies, VOCAL LESION REMOVAL X2. Past Anesthesia/Blood Transfusion Reactions: Postoperative Nausea & Vomiting (PONV) Additional Past Anesthesia/Blood Transfusion Reaction / Comment(s): OCCASIONAL NAUSEA. Past Psychological History: No Psychological Hx Reported Smoking Status: Current every day smoker Past Alcohol Use History: Daily Additional Past Alcohol Use History / Comment(s): SMOKES 1PPD FOR 48 YEARS. 2 ALCOHOLIC DRINKS PER DAY. Past Drug Use History: Marijuana Additional Drug Use History / Comment(s): OCCASIONAL USE- KNOWS TO REFRAIN FROM USE FOR AT LEAST 24 HOURS PRIOR TO PROCEDURE. - Past Family History Mother Family Medical History: Cancer Additional Family Medical History / Comment(s): Colon cancer. Sister(s) Additional Family Medical History / Comment(s): Colon Polyps. Father Family Medical History: Cancer, CVA/TIA, Diabetes Mellitus Additional Family Medical History / Comment(s): Paternal aunt had breast cancer. Medications and Allergies Home Medications Medication Instructions Recorded Confirmed Type amLODIPine BESYLATE [Norvasc] 5 mg PO QAM 01/06/18 11/25/19 History Pantoprazole [Protonix] 40 mg PO DAILY 12/16/18 11/25/19 History Multivitamin/Iron/Folic Acid 1 each PO DAILY 11/23/19 11/25/19 History [Centrum Adults Tablet] Sucralfate [Carafate] 1 gm PO QID 11/23/19 11/25/19 History hydroCHLOROthiazide 25 mg PO DAILY 11/23/19 11/25/19 History Allergies Allergy/AdvReac Type Severity Reaction Status Date / Time No Known Allergies Allergy Verified 11/25/19 09:04 Surgical - Exam Vital Signs Temp Pulse Resp BP Pulse Ox 97.1 F L 83 16 135/90 98 11/25/19 09:06 11/25/19 09:06 11/25/19 09:06 11/25/19 09:06 11/25/19 09:06
--- NOTE | 2019-11-25 10:19 | P.PCN ---
Date of Procedure: 11/25/19 Description of Procedure: PREOPERATIVE DIAGNOSIS: Gastroesophageal reflux disease. Epigastric abdominal pain POSTOPERATIVE DIAGNOSIS: Gastroesophageal reflux disease. Epigastric abdominal pain Gastritis, acute bleeding Diaphragmatic hiatal hernia OPERATION: Esophagogastroduodenoscopy with biopsies along antrum. SURGEON: Suzie Harris MD ANESTHESIA: MAC. INDICATIONS: The patient is a 64-year-old female who presents with a history of reflux disease. Benefits and risks of the procedure were described. Informed consent was obtained. DESCRIPTION: The patient was brought into the endoscopy suite and laid in the left lateral decubitus position. An Olympus gastroscope was passed along the posterior oropharynx down to the distal esophagus where the squamocolumnar junction was encountered at 36 cm from the incisors. The stomach was entered and no bile reflux was found. Additional findings are listed below. Biopsies with cold forceps were obtained of the antrum. The first through third portion of the duodenum was examined and unremarkable. Retroflexion of the scope confirmed Hill grade 2 lower esophageal valve. The squamocolumnar junction demonstrated LA grade B erosive esophagitis. The stomach was desufflated. The patient tolerated the procedure well. FINDINGS: Squamocolumnar junction 36 cm from the incisors. Diaphragmatic hiatus at 38 cm. Hiatal hernia, 2 cm Hill grade 2 lower esophageal valve. LA grade B erosive esophagitis. No active duodenitis. Chronic gastritis with bleed RECOMMENDATIONS: Upper endoscopy as needed. Plan - Discharge Summary Discharge Rx Participant: No New Discharge Prescriptions: Continue amLODIPine BESYLATE [Norvasc] 5 mg PO QAM Pantoprazole [Protonix] 40 mg PO DAILY Sucralfate [Carafate] 1 gm PO QID hydroCHLOROthiazide 25 mg PO DAILY Multivitamin/Iron/Folic Acid [Centrum Adults Tablet] 1 each PO DAILY Discharge Medication List amLODIPine BESYLATE [Norvasc] 5 mg PO QAM 01/06/18 [History] Pantoprazole [Protonix] 40 mg PO DAILY 12/16/18 [History] Multivitamin/Iron/Folic Acid [Centrum Adults Tablet] 1 each PO DAILY 11/23/19 [History] Sucralfate [Carafate] 1 gm PO QID 11/23/19 [History] hydroCHLOROthiazide 25 mg PO DAILY 11/23/19 [History] Follow up Appointment(s)/Referral(s): Suzie Harris MD [STAFF PHYSICIAN] - 12/08/19 Patient Instructions/Handouts: Hiatal Hernia (DC), Gastritis (DC), How to Stop Smoking (DC) Activity/Diet/Wound Care/Special Instructions: Recommended tobacco cessation due to severity of gastritis Discharge Disposition: HOME SELF-CARE
[2019-11-25 10:22] VITALS: RESP 18
[2019-11-25 10:37] VITALS: BP 120/80; PULSE 80
== END 2019-11-25 10:50 | disposition home or self-care (01) ==
LOC: ORWHC2ENDO 08:51
PROVIDERS: ATTEND Surgery Plastic and Reconstructive Surgery
DX: K29.50 Unspecified chronic gastritis without bleeding (principal); K44.9 Diaphragmatic hernia without obstruction or gangrene; K22.10 Ulcer of esophagus without bleeding; J44.9 Chronic obstructive pulmonary disease, unspecified; K21.9 Gastro-esophageal reflux disease without esophagitis; I12.9 Hypertensive chronic kidney disease with stage 1 through stage 4 chronic kidney disease, or unspecified chronic kidney disease; N18.3 Chronic kidney disease, stage 3 (moderate); R41.3 Other amnesia; E07.9 Disorder of thyroid, unspecified; R73.03 Prediabetes; N30.10 Interstitial cystitis (chronic) without hematuria; I83.90 Asymptomatic varicose veins of unspecified lower extremity; Z90.710 Acquired absence of both cervix and uterus; Z98.51 Tubal ligation status; Z98.890 Other specified postprocedural states; F17.210 Nicotine dependence, cigarettes, uncomplicated; Z80.0 Family history of malignant neoplasm of digestive organs; Z80.3 Family history of malignant neoplasm of breast; Z83.71 Family history of colonic polyps; Z82.3 Family history of stroke; Z83.3 Family history of diabetes mellitus; Z79.899 Other long term (current) drug therapy
CPT/HCPCS: 88305; 43239; J2704

== ENCOUNTER → 2019-12-22 | Outpatient (CLI) | payer OTHER ==
--- NOTE | 2019-12-22 18:06 | XR ---
EXAMINATION TYPE: XR shoulder complete RT DATE OF EXAM: 12/22/2019 COMPARISON: NONE HISTORY: Pain TECHNIQUE: 3 views FINDINGS: I see no fracture nor dislocation. Glenohumeral joint is intact. There is small calcificati on at the greater tuberosity of the humerus. There is minor spurring at the glenohumeral joint. IMPRESSION: Minor degenerative changes. No fracture seen.
== END | disposition home or self-care (01) ==
LOC: RAD 17:27
PROVIDERS: ATTEND Emergency Medicine
DX: M19.011 Primary osteoarthritis, right shoulder (principal)

== ENCOUNTER → 2021-01-09 | Outpatient (CLI) | payer BC ==
[2021-01-09 10:53] LABS: HCT 42.4 % (37.2-46.3); HGB 14.3 g/dL (12.0-15.0); MCH 33.1 pg (27.0-32.0); MCHC 33.7 g/dL (32.0-37.0); MCV 98.1 fL (80.0-97.0); Mean Platelet Volume 9.5 fL (9.5-12.2); Platelet Count 264 X 10*3/uL (140-440); RBC 4.32 X 10*6/uL (4.10-5.20); RDW 13.8 % (11.5-14.5); WBC 6.04 X 10*3/uL (4.50-10.00)
[2021-01-09 14:43] LABS: ALT 23 U/L (8-44); AST 34 U/L (13-35); Albumin 4.3 g/dL (3.8-4.9); Albumin/Globulin Ratio 1.82 (1.60-3.17); Alkaline Phosphatase 83 U/L (41-126); Bilirubin, Conjugated <0.20 mg/dL (0.20-0.40); Globulin 2.4 g/dL (1.6-3.3); Total Protein 6.7 g/dL (6.2-8.2)
== END | disposition home or self-care (01) ==
LOC: LABWHC1 07:02
PROVIDERS: ATTEND Internal Medicine
DX: E05.90 Thyrotoxicosis, unspecified without thyrotoxic crisis or storm (principal)
CPT/HCPCS: 36415; 80076; 84439; 84443; 84445; 84481; 85027; 86376

== ENCOUNTER → 2021-02-17 | Outpatient (CLI) | payer BC ==
[2021-02-17 16:57] LABS: Appearance,Urine Clear (Clear); Bilirubin,Urine Negative (Negative); Blood,Urine Negative (Negative); Color,Urine Light Yellow; Glucose,Urine (UA) Negative (Negative); Ketones,Urine Negative (Negative); Leukocyte Esterase,Urine Negative (Negative); Nitrite,Urine Negative (Negative); PH, Urine 5.5 (5.0-8.0); Protein,Urine Negative (Negative); Urobilinogen,Urine <2.0 mg/dL (<2.0)
[2021-02-17 23:15] LABS: Basophils # (A) 0.06 X 10*3/uL (0.00-0.10); Basophils % (A) 0.9 %; Eosinophils # (A) 0.14 X 10*3/uL (0.04-0.35); Eosinophils % (A) 2.1 %; HCT 39.7 % (37.2-46.3); HGB 13.1 g/dL (12.0-15.0); Lymphocytes % (A) 34.4 %; MCH 32.8 pg (27.0-32.0); MCV 99.3 fL (80.0-97.0); Mean Platelet Volume 9.7 fL (9.5-12.2); Monocytes # (A) 0.55 X 10*3/uL (0.20-1.00); Monocytes % (A) 8.2 %; Neutrophils # (A) 3.61 X 10*3/uL (1.80-7.70); Platelet Count 247 X 10*3/uL (140-440); RDW 13.4 % (11.5-14.5); WBC 6.69 X 10*3/uL (4.50-10.00)
[2021-02-18 01:06] LABS: % Iron Saturation 24.45 (12.00-45.00); African American GFR (CKD) 69.5 (60.0-200.0); Albumin 4.2 g/dL (3.8-4.9); Albumin/Globulin Ratio 1.78 (1.60-3.17); Anion Gap 14.8 mmol/L (4.00-12.00); BUN/Creat Ratio 29.88 Ratio (12.00-20.00); Blood Urea Nitrogen 29.7 mg/dL (9.0-27.0); Calcium 9.9 mg/dL (8.7-10.3); Ferritin 56.7 ng/mL (10.0-291.0); Globulin 2.3 g/dL (1.6-3.3); Magnesium 1.9 mg/dL (1.5-2.4); Non-African American GFR(CKD) 59.9 (60.0-200.0); Phosphorus 5.1 mg/dL (2.4-5.1); Total Bilirubin 0.3 mg/dL (0.30-1.20); Total Protein 6.5 g/dL (6.2-8.2); Uric Acid 3.1 mg/dL (2.9-7.7)
== END | disposition home or self-care (01) ==
LOC: LABWHC1 15:35
PROVIDERS: ATTEND Nurse Practitioner Family
DX: E55.9 Vitamin D deficiency, unspecified (principal); D64.9 Anemia, unspecified; N39.0 Urinary tract infection, site not specified; N25.81 Secondary hyperparathyroidism of renal origin; M10.9 Gout, unspecified
CPT/HCPCS: 36415; 80053; 81001; 81003; 82306; 82728; 83540; 83550; 83735; 83970; 84100; 84550; 85025

== ENCOUNTER → 2021-04-13 | Outpatient (CLI) | payer BC ==
[2021-04-13 16:06] LABS: Appearance,Urine Clear (Clear); Bilirubin,Urine Negative (Negative); Blood,Urine Negative (Negative); Color,Urine Light Yellow; Glucose,Urine (UA) Negative (Negative); Ketones,Urine Negative (Negative); Leukocyte Esterase,Urine Negative (Negative); Nitrite,Urine Negative (Negative); PH, Urine 6.5 (5.0-8.0); Protein,Urine Negative (Negative); Specific Gravity,Urine 1.005 (1.001-1.035); Urobilinogen,Urine <2.0 mg/dL (<2.0)
[2021-04-13 23:33] LABS: HCT 41.8 % (37.2-46.3); HGB 13.7 g/dL (12.0-15.0); MCH 31.8 pg (27.0-32.0); MCHC 32.8 g/dL (32.0-37.0); Mean Platelet Volume 9.6 fL (9.5-12.2); Platelet Count 260 X 10*3/uL (140-440); RBC 4.31 X 10*6/uL (4.10-5.20); RDW 13.1 % (11.5-14.5); WBC 7.35 X 10*3/uL (4.50-10.00)
[2021-04-14 04:40] LABS: % Iron Saturation 19.04 (12.00-45.00); ALT 24 U/L (8-44); AST 28 U/L (13-35); African American GFR (CKD) 66.5 (60.0-200.0); Albumin 4.4 g/dL (3.8-4.9); Albumin/Globulin Ratio 1.88 (1.60-3.17); Alkaline Phosphatase 93 U/L (41-126); BUN/Creat Ratio 22.62 Ratio (12.00-20.00); Blood Urea Nitrogen 23.3 mg/dL (9.0-27.0); Calcium 9.5 mg/dL (8.7-10.3); Carbon Dioxide 25.1 mmol/L (20.0-27.5); Chloride 97 mmol/L (96-109); Ferritin 40.7 ng/mL (10.0-291.0); Globulin 2.4 g/dL (1.6-3.3); Glucose 115 mg/dL (70-110); Iron 71 ug/dL (50-170); Magnesium 1.9 mg/dL (1.5-2.4); Non-African American GFR(CKD) 57.4 (60.0-200.0); Phosphorus 3.2 mg/dL (2.4-5.1); Potassium 3.6 mmol/L (3.5-5.5); Sodium 138 mmol/L (135-145); Total Bilirubin <0.20 mg/dL (0.30-1.20); Total Iron Binding Capacity 372 ug/dL (228-460); Total Protein 6.8 g/dL (6.2-8.2)
== END | disposition home or self-care (01) ==
LOC: LABWHC1 15:27
PROVIDERS: ATTEND Nurse Practitioner Family
DX: D64.9 Anemia, unspecified (principal); E55.9 Vitamin D deficiency, unspecified; M10.9 Gout, unspecified; N39.0 Urinary tract infection, site not specified; N25.81 Secondary hyperparathyroidism of renal origin
CPT/HCPCS: 36415; 80053; 81003; 82306; 82728; 83540; 83550; 83735; 83970; 84100; 84550; 85027

== ENCOUNTER → 2021-05-15 | Outpatient (CLI) | payer BC ==
[2021-05-16 00:52] LABS: HCT 39.5 % (37.2-46.3); HGB 13.5 g/dL (12.0-15.0); MCHC 34.2 g/dL (32.0-37.0); MCV 93.6 fL (80.0-97.0); Mean Platelet Volume 9.6 fL (9.5-12.2); NRBC Per 100 WBC 0 /100 WBCS (0.0-0.0); Platelet Count 244 X 10*3/uL (140-440); RBC 4.22 X 10*6/uL (4.10-5.20); RDW 13.9 % (11.5-14.5); WBC 7.78 X 10*3/uL (4.50-10.00)
[2021-05-16 01:04] LABS: T4, Free (Free Thyroxine) 1.15 ng/dL (0.800-1.800)
== END | disposition home or self-care (01) ==
LOC: LABWHC1 15:26
PROVIDERS: ATTEND Internal Medicine
DX: E05.90 Thyrotoxicosis, unspecified without thyrotoxic crisis or storm (principal)
CPT/HCPCS: 36415; 84439; 84443; 84450; 84460; 84481; 85027

== ENCOUNTER → 2022-04-12 | Outpatient (CLI) | payer MEDICARE ==
[2022-04-12 14:18] LABS: HCT 41.3 % (37.2-46.3); HGB 13.7 g/dL (12.0-15.0); MCH 33.1 pg (27.0-32.0); MCHC 33.2 g/dL (32.0-37.0); MCV 99.8 fL (80.0-97.0); Mean Platelet Volume 9.2 fL (9.5-12.2); NRBC Per 100 WBC 0 /100 WBCS (0.0-0.0); Platelet Count 268 X 10*3/uL (140-440); RBC 4.14 X 10*6/uL (4.10-5.20); RDW 13.7 % (11.5-14.5); WBC 8.26 X 10*3/uL (4.50-10.00)
[2022-04-12 14:36] LABS: T4, Free (Free Thyroxine) 0.95 ng/dL (0.800-1.800)
== END | disposition home or self-care (01) ==
LOC: LABWHC1 09:04
PROVIDERS: ATTEND Internal Medicine
DX: E05.90 Thyrotoxicosis, unspecified without thyrotoxic crisis or storm (principal)
CPT/HCPCS: 36415; 84439; 84443; 84450; 84460; 84481; 85027

== ENCOUNTER → 2023-07-24 | Outpatient (CLI) | payer MEDICARE ==
[2023-07-24 18:36] LABS: HCT 36.3 % (37.2-46.3); HGB 11.9 g/dL (12.0-15.0); MCH 30.9 pg (27.0-32.0); MCHC 32.8 g/dL (32.0-37.0); MCV 94.3 FL (80.0-97.0); Mean Platelet Volume 9.5 FL (9.5-12.2); NRBC Per 100 WBC 0 X 10*3/uL (0.00-0.01); Platelet Count 266 X 10*3/uL (140-440); RBC 3.85 X 10*6/uL (4.10-5.20); RDW 15.9 % (11.5-14.5); WBC 5.62 X 10*3/uL (4.50-10.00)
[2023-07-24 20:11] LABS: T4, Free (Free Thyroxine) 0.88 ng/dL (0.80-1.80)
== END | disposition home or self-care (01) ==
LOC: LABWHC1 15:28
PROVIDERS: ATTEND Internal Medicine
DX: E05.90 Thyrotoxicosis, unspecified without thyrotoxic crisis or storm (principal)
CPT/HCPCS: 36415; 84439; 84443; 84450; 84460; 84481; 85027

== ENCOUNTER 2023-10-07 02:11 | Inpatient (IN) | payer MEDICARE ==
[2023-10-07] MEDS: MORPHINE SULFATE 2 MG/ML SYRINGE IM STA (02:59)
--- NOTE | 2023-10-07 03:56 | ED ---
Lower Extremity Injury HPI - General Chief Complaint: Extremity Injury, Lower Stated Complaint: Fall- left hip and back injury Time Seen by Provider: 10/07/23 02:20 Source: patient Mode of arrival: wheelchair Limitations: no limitations - History of Present Illness Initial Comments: 67-year-old female presenting with chief complaint of left hip pain. Patient was drinking alcohol earlier today and lost her balance falling over and hitting her left hip. She denies any head injury, loss of consciousness, or use of blood thinners. This happened around 9 PM and patient refused to come to the hospital, eventually she was convinced to come to the hospital by her daughter as she could not bear weight on her leg. She is a daily drinker, normally drinks a pint and 1/2/day. No numbness or tingling. - Related Data Home Medications Medication Instructions Recorded Confirmed amLODIPine BESYLATE [Norvasc] 5 mg PO QAM 01/06/18 10/07/23 Pantoprazole [Protonix] 40 mg PO DAILY 12/16/18 10/07/23 Folic Acid 0.4 mg PO DAILY 01/21/23 10/07/23 methIMAzole [Tapazole] 5 mg PO DAILY 01/21/23 10/07/23 cefUROXime axetiL [Ceftin] 500 mg PO BID 10/07/23 10/07/23 hydrOXYzine HCL [Atarax] 25 mg PO DAILY 10/07/23 10/07/23 Previous Rx's Medication Instructions Recorded Apixaban [Eliquis] 2.5 mg PO BID 30 Days #60 tab 10/08/23 Sennosides [Senokot] 2 tab PO DAILY PRN #60 tablet 10/08/23 HYDROcodone/APAP 7.5-325MG [[place] 1 - 2 tab PO Q6H PRN #32 tab 10/09/23 7.5-325] Allergies Allergy/AdvReac Type Severity Reaction Status Date / Time No Known Allergies Allergy Verified 10/08/23 14:04 Review of Systems ROS Statement: Those systems with pertinent positive or pertinent negative responses have been documented in the HPI. ROS Other: All systems not noted in ROS Statement are negative. Past Medical History Past Medical History: COPD, Diabetes Mellitus, GERD/Reflux, Hypertension, Memory Impairment, Renal Disease, Thyroid Disorder Additional Past Medical History / Comment(s): "Borderline diabetes", interstitial cystitis, varicose veins, Stage 2 Kidney Failure. History of Any Multi-Drug Resistant Organisms: None Reported Past Surgical History: Breast Surgery, Hysterectomy, Orthopedic Surgery, Tubal Ligation Additional Past Surgical History / Comment(s): HEMORRHOIDECTOMY. NASAL FX REPAIR. EXC POLYPS IN THROAT. RT WRIST GANGLION CYST. RT ROTATOR CUFF SURG. 3 breast biopsies, VOCAL LESION REMOVAL X2. Past Anesthesia/Blood Transfusion Reactions: Postoperative Nausea & Vomiting (PONV) Additional Past Anesthesia/Blood Transfusion Reaction / Comment(s): OCCASIONAL NAUSEA. Past Psychological History: No Psychological Hx Reported Smoking Status: Current every day smoker Past Alcohol Use History: Daily Past Drug Use History: Marijuana - Past Family History Mother Family Medical History: Cancer Additional Family Medical History / Comment(s): Colon cancer. Sister(s) Additional Family Medical History / Comment(s): Colon Polyps. Father Family Medical History: Cancer, CVA/TIA, Diabetes Mellitus Additional Family Medical History / Comment(s): Paternal aunt had breast cancer. General Exam Limitations: no limitations General appearance: alert, in no apparent distress Head exam: Present: atraumatic, normocephalic, normal inspection Eye exam: Present: normal appearance, EOMI Neck exam: Present: normal inspection. Absent: meningismus Respiratory exam: Absent: respiratory distress Cardiovascular Exam: Present: regular rate Left Hip exam: Present: tenderness. Absent: full ROM Neurovascular tendon exam: Present: no vascular compromise Neurological exam: Present: alert, oriented X3 Psychiatric exam: Present: normal affect, normal mood Skin exam: Present: normal color Course Vital Signs 10/07/23 10/07/23 02:13 05:00 Temperature 97.9 F 98.9 F Pulse Rate 84 83 Respiratory 18 16 Rate Blood Pressure 143/94 149/86 O2 Sat by Pulse 94 L 94 L Oximetry Medical Decision Making - Medical Decision Making Was pt. sent in by a medical professional or institution (, PA, FARM INSTRUCTOR, urgent care, hospital, or assisted...) When possible be specific @ -No Did you speak to anyone other than the patient for history (EMS, parent, family, police, friend...)? What history was obtained from this source @ -Patient's daughter at bedside Did you review nursing and triage notes (agree or disagree)? Why? @ -I reviewed and agree with nursing and triage notes Were old charts reviewed (outside hosp., previous admission, EMS record, old EKG, old radiological studies, urgent care reports/EKG's, assisted records)? Report findings @ -No old charts were reviewed Differential Diagnosis (chest pain, altered mental status, abdominal pain women, abdominal pain men, vaginal bleeding, weakness, fever, dyspnea, syncope, headache, dizziness, GI bleed, back pain, seizure, CVA, palpatations, mental health, musculoskeletal)? @ -Differential Musculoskeletal Muscular strain, contusion, ligament sprain, fracture, arthritis, septic arthritis, bursitis, cellulitis, muscle spasm, nerve compression, DVT, arterial occlusion, herpes zoster, electrolyte abnormality, tumor.... This is not meant to be in all inclusive list EKG interpreted by me (3pts min.). @ -As above X-rays interpreted by me (1pt min.). @ -X-ray shows acute slightly impacted subcapital fracture of the left hip. Mild cardiomegaly without acute pulmonary process. CT interpreted by me (1pt min.). @ -None done U/S interpreted by me (1pt. min.). @ -None done What testing was considered but not performed or refused? (CT, X-rays, U/S, labs)? Why? @ -None What meds were considered but not given or refused? Why? @ -None Did you discuss the management of the patient with other professionals (professionals i.e. , PA, FARM INSTRUCTOR, lab, RT, psych nurse, renal social worker, coverstitch elastic attacher, teacher, casino surveillance officer, case repairer)? Give summary @ -I spoke with Dr. Hdez who accepted admission Was smoking cessation discussed for >3mins.? @ -No Was critical care preformed (if so, how long)? @ -No Were there social determinants of health that impacted care today? How? (Homelessness, low income, unemployed, alcoholism, drug addiction, transportation, low edu. Level, literacy, decrease access to med. care, [facility], rehab)? @ -No Was there de-escalation of care discussed even if they declined (Discuss DNR or withdrawal of care, Hospice)? DNR status @ -No What co-morbidities impacted this encounter? (DM, HTN, Smoking, COPD, CAD, Cancer, CVA, ARF, Chemo, Hep., AIDS, mental health diagnosis, sleep apnea, morbid obesity)? @ -None Was patient admitted / discharged? Hospital course, mention meds given and route, prescriptions, significant lab abnormalities, going to OR and other p ertinent info. @ -68-year-old female presenting with chief complaint of left hip pain after a fall today. X-ray reveals subcapital left hip fracture. Patient will be admitted. She is agreeable with this plan. I discussed this case with my attending Dr. Coppola. Undiagnosed new problem with uncertain prognosis? @ -No Drug Therapy requiring intensive monitoring for toxicity (Heparin, Nitro, Ins ulin, Cardizem)? @ -No Were any procedures done? @ -No Diagnosis/symptom? @ -Hip fracture Acute, or Chronic, or Acute on Chronic? @ -Acute Uncomplicated (without systemic symptoms) or Complicated (systemic symptoms)? @ -Complicated Side effects of treatment? @ -No Exacerbation, Progression, or Severe Exacerbation? @ -No Poses a threat to life or bodily function? How? (Chest pain, [place], NM, pneumonia, PE, COPD, DKA, ARF, appy, cholecystitis, CVA, Diverticulitis, Homicidal, Suicidal, threat to staff... and all critical care pts) @ -Yes - Lab Data Result diagrams: 10/09/23 04:10 10/07/23 04:37 Disposition Clinical Impression: Fracture of hip Disposition: ADMITTED IP TO THIS [facility] Condition: Fair Time of Disposition: 04:21
--- NOTE | 2023-10-07 04:04 | XR ---
EXAMINATION TYPE: XR chest 1V DATE OF EXAM: 10/07/2023 COMPARISON: NONE HISTORY: Fall TECHNIQUE: Single frontal view of the chest is obtained. FINDINGS: There is no focal air space opacity, pleural effusion, or pneumothorax seen. The cardiac silhouette size is mildly enlarged. The osseous structures are demineralized. IMPRESSION: Mild cardiomegaly without acute pulmonary process.
--- NOTE | 2023-10-07 04:06 | XR ---
EXAMINATION TYPE: XR Hip LT and AP Pelvis DATE OF EXAM: 10/07/2023 COMPARISON: NONE HISTORY: Fall TECHNIQUE: A single AP view of the pelvis is obtained. Two views of the left hip are obtained. FINDINGS: There is acute slightly displaced impacted subcapital fracture of the left hip. Pubic sym physis is intact. Sacroiliac joints are preserved. Overlying soft tissues unremarkable. IMPRESSION: There is acute slightly impacted subcapital fracture of left hip.
[2023-10-07] MEDS ORDERED: ONDANSETRON 4 MG/2 ML VIAL IVP PRN (04:17)
[2023-10-07] MEDS ORDERED: NALOXONE 0.4 MG/ML 1 ML VIAL IV PRN (04:17)
[2023-10-07] MEDS ORDERED: LORazepam 2 MG/ML INJ IV PRN ×3 (04:26)
[2023-10-07] MEDS: MORPHINE SULFATE 4 MG/ML SYRINGE IVP STA (04:42)
[2023-10-07 05:01] LABS: Basophils % (A) 0 %; Eosinophils # (A) 0.1 k/uL (0-0.7); Eosinophils % (A) 1 %; HCT 44.9 % (34.0-46.0); HGB 14.3 gm/dL (11.4-16.0); Lymphocytes # (A) 0.9 k/uL (1.0-4.8); Lymphocytes % (A) 12 %; MCH 32.1 pg (25.0-35.0); MCHC 31.9 g/dL (31.0-37.0); MCV 100.6 fL (80.0-100.0); Macrocytosis Slight; Mean Platelet Volume 7.2; Monocytes # (A) 0.4 k/uL (0-1.0); Monocytes % (A) 5 %; Neutrophils # (A) 5.8 k/uL (1.3-7.7); Neutrophils % (A) 80 %; Platelet Count 216 k/uL (150-450); RBC 4.46 m/uL (3.80-5.40); RDW 13.9 % (11.5-15.5); WBC 7.3 k/uL (3.8-10.6)
[2023-10-07] MEDS: SODIUM CHLORIDE 0.9% 1,000 ML IV SCH (05:14)
[2023-10-07 05:18] LABS: Appearance,Urine Clear (Clear); Bilirubin,Urine Negative (Negative); Blood,Urine Negative (Negative); Color,Urine Colorless; Glucose,Urine (UA) Negative (Negative); Ketones,Urine Negative (Negative); Leukocyte Esterase,Urine Negative (Negative); Nitrite,Urine Negative (Negative); Protein,Urine Negative (Negative); Specific Gravity,Urine 1.005 (1.001-1.035); Urobilinogen,Urine <2.0 mg/dL (<2.0)
[2023-10-07 05:23] LABS: ALT 24 U/L (4-34); AST 39 U/L (14-36); African American GFR (CKD) 65 (>60 ml/min/1.73 sqM); Albumin 4.3 g/dL (3.5-5.0); Alkaline Phosphatase 62 U/L (38-126); Anion Gap 7 mmol/L; Blood Urea Nitrogen 19 mg/dL (7-17); Calcium 9.7 mg/dL (8.4-10.2); Carbon Dioxide 25 mmol/L (22-30); Chloride 103 mmol/L (98-107); Glucose 86 mg/dL (74-99); Non-African American GFR(CKD) 56 (>60 ml/min/1.73 sqM); Potassium 4.2 mmol/L (3.5-5.1); Sodium 135 mmol/L (137-145); Total Bilirubin 0.4 mg/dL (0.2-1.3); Total Protein 7.1 g/dL (6.3-8.2)
[2023-10-07 05:32] LABS: Partial Thromboplastin Time 22.8 sec (22.0-30.0); Prothrombin Time 10.8 sec (10.0-12.5)
--- NOTE | 2023-10-07 09:04 | P.HPIM ---
Review of Systems THIS IS A PLEASANT 67 YEARS OLD FEMALE LVH and with past medical history of alcohol use disorder, everyday smoker, Hypertension, diabetes/prediabetes, GERD, memory impairment and thyroid disease. She presents because of hip fracture after she fell at home. Patient states that she drinks every day and yesterday she drank about 5-7 drinks of whiskey and she was trying to reach out to her child to feed her when she fell on her side followed by pain on her right of the chest and her left hip area and she describes. Also her left leg is flexed at the hip.Patient describes her pain as 10/10 and especially with movement but if she stays still she will feel fine. Patient currently states she is fully awake and oriented, in mild distress due to to pain. She is also Hoarseness of voice She states that she has some shortness of breath but currently it is not bad. She has been using nebulizer twice last week after a friend gave her that nebulizer last year. She has also some cough and occasional phlegm but no dizziness She is complaining from chest pain on both sides of the lower rib cage, she states that it happened after the fall. Also during talking she becomes a little bit short of breath. She used to smoke 1 pack/day for 48 years. She also admits to using marijuana at times. Patient counseled to quit smoking and she agrees and she agrees to the nicotine patch. Patient saw her ENT doctor last for hoarseness of voice and they found a polyp and prescribed her antibiotic but she has not taken it yet Patient vitals are reviewed, currently afebrile her oxygen little bit on the low side 92% on room air Labs were unremarkable including CBC, BMP, LFT, INR, urine analysis X-ray showing acute slightly impacted subcapital fracture of the left hip Chest x-ray showing mild cardiomegaly with no pulmonary vascular congestion, I reviewed the chest x-ray with me there is also some chronic COPD changes Past Medical History Past Medical History: COPD, Diabetes Mellitus, GERD/Reflux, Hypertension, Memory Impairment, Renal Disease, Thyroid Disorder Additional Past Medical History / Comment(s): "Borderline diabetes", interstitial cystitis, varicose veins, Stage 2 Kidney Failure. History of Any Multi-Drug Resistant Organisms: None Reported Past Surgical History: Breast Surgery, Hysterectomy, Orthopedic Surgery, Tubal Ligation Additional Past Surgical History / Comment(s): HEMORRHOIDECTOMY. NASAL FX REPAIR. EXC POLYPS IN THROAT. RT WRIST GANGLION CYST. RT ROTATOR CUFF SURG. 3 breast biopsies, VOCAL LESION REMOVAL X2. Past Anesthesia/Blood Transfusion Reactions: Postoperative Nausea & Vomiting (PONV) Additional Past Anesthesia/Blood Transfusion Reaction / Comment(s): OCCASIONAL NAUSEA. Smoking Status: Current every day smoker - Past Family History Mother Family Medical History: Cancer Additional Family Medical History / Comment(s): Colon cancer. Sister(s) Additional Family Medical History / Comment(s): Colon Polyps. Father Family Medical History: Cancer, CVA/TIA, Diabetes Mellitus Additional Family Medical History / Comment(s): Paternal aunt had breast cancer. Medications and Allergies Home Medications Medication Instructions Recorded Confirmed Type RX: amLODIPine BESYLATE [Norvasc] 5 mg PO QAM 01/06/18 01/21/23 History RX: Pantoprazole [Protonix] 40 mg PO DAILY 12/16/18 01/21/23 History Albuterol Sulfate [Albuterol 1 - 2 puff PO RT-Q6H PRN 01/21/23 01/21/23 History Sulfate Hfa] Benzonatate [Tessalon Perle] 200 mg PO TID PRN 01/21/23 01/21/23 History Diphenox-Atrop 2.5-0.025 mg 1 - 2 tab PO QID PRN 3 Days #24 tab 01/21/23 Rx [Lomotil] Montelukast [Singulair] 10 mg PO HS 01/21/23 01/21/23 History Ondansetron Odt [Zofran Odt] 4 mg PO Q8HR PRN #10 tab 01/21/23 Rx RX: Folic Acid 0.4 mg PO DAILY 01/21/23 01/21/23 History hydrOXYzine HCL [Hydroxyzine HCl] 10 mg PO HS PRN 01/21/23 01/21/23 History methIMAzole [Tapazole] 5 mg PO DAILY 01/21/23 01/21/23 History Allergies Allergy/AdvReac Type Severity Reaction Status Date / Time No Known Allergies Allergy Verified 10/07/23 02:15 Physical Exam Vitals: Vital Signs Temp Pulse Pulse Resp BP BP Pulse Ox 10/07/23 07:56 97.8 F 74 18 109/72 92 L 10/07/23 05:52 98.5 F 77 17 138/78 91 L 10/07/23 05:00 98.9 F 83 16 149/86 94 L 10/07/23 02:13 97.9 F 84 18 143/94 94 L Intake and Output 10/06/23 10/07/23 10/07/23 22:59 06:59 14:59 Intake Total 1000 Output Total 300 Balance 700 Intake: IV 1000 Invasive Line 1 1000 Output: Urine 300 Uretheral (Beckwith) 300 Other: Weight 47.627 kg Results CBC & Chem 7: 10/07/23 04:37 10/07/23 04:37 Labs: Abnormal Lab Results - Last 24 Hours (Table) 10/07/23 10/07/23 Range/Units 04:37 04:37 MCV 100.6 H (80.0-100.0) fL Lymphocytes # 0.9 L (1.0-4.8) k/uL Sodium 135 L (137-145) mmol/L BUN 19 H (7-17) mg/dL AST 39 H (14-36) U/L Thrombosis Risk Factor Assmnt - Choose All That Apply Any of the Below Risk Factors Present?: Yes Each Risk Factor Represents 2 Points: Age 61-74 years Each Risk Factor Represents 5 Points: Hip, pelvis, or leg fracture (< 1 month) Thrombosis Risk Factor Assessment Total Risk Factor Score: 7 Thrombosis Risk Factor Assessment Level: High Risk Assessment and Plan Assessment: Fall without syncope at home while alcoholic intoxicated Alcohol use disorder at risk of alcohol withdrawal Acute left hip subcapital mildly impacted fracture Stridor with recent history of polyp in the larynx as per patient History of thyroid disease Hypertension COPD suspected, possible mild exacerbation Diabetes/prediabetes currently not on medication GERD Memory impairment Plan: Continue CIWA protocol Thiamine Gentle hydration Continue bronchodilator Will ask for pulmonary evaluation for preop as patient is high risk given her some pulmonary symptoms and prolonged history of heavy drinking besides her hardness and laryngeal disease which is recent Check TSH Check proBNP Labs and medication were reviewed.. Continue same treatment. Continue with symptomatic treatment. Resume home medication. Monitor labs and vitals. DVT and GI prophylaxis. Further recommendations as per clinical course of the patient DVT prophylaxis: deferred to surgery team GI Prophylaxis: Pepcid PT/OT: Pending
[2023-10-07] MEDS ORDERED: THIAMINE 100 MG in SODIUM CHLORIDE 0.9% 50 ML IVPB SCH (09:15)
--- NOTE | 2023-10-07 09:28 | P.HPOR ---
History of Present Illness H&P Date: 10/07/23 History of present illness: Patient is a very pleasant 67-year-old female who is seen and examined at bedside for further evaluation of her left hip. She states she was drinking too much alcohol yesterday when she went to give water to her cat when she fell landing on her left hip. She has had severe pain and inability to ambulate on her left lower extremity since that time. She was brought to [facility] for further evaluation. She is found to have a left subcapital left hip fracture. Patient denies any other injuries at the time of the fall. She is currently scheduled to undergo a left hip hemiarthroplasty today if cleared by medicine. She is currently NPO status. We will let her resume a normal diet today. She is currently being seen and examined by medicine for clearance. Patient's other medical diagnoses include COPD, diabetes mellitus, hypertension, renal disease, and thyroid disorder. Patient needs clearance by pulmonology prior to surgical intervention. Consultation has been placed. Currently, we are planning for surgical intervention tomorrow, 10/08/2023, if the patient is cleared. Past Medical History Past Medical History: COPD, Diabetes Mellitus, GERD/Reflux, Hypertension, Memory Impairment, Renal Disease, Thyroid Disorder Additional Past Medical History / Comment(s): "Borderline diabetes", interstitial cystitis, varicose veins, Stage 2 Kidney Failure. History of Any Multi-Drug Resistant Organisms: None Reported Past Surgical History: Breast Surgery, Hysterectomy, Orthopedic Surgery, Tubal Ligation Additional Past Surgical History / Comment(s): HEMORRHOIDECTOMY. NASAL FX REPAIR. EXC POLYPS IN THROAT. RT WRIST GANGLION CYST. RT ROTATOR CUFF SURG. 3 breast biopsies, VOCAL LESION REMOVAL X2. Past Anesthesia/Blood Transfusion Reactions: Postoperative Nausea & Vomiting (PONV) Additional Past Anesthesia/Blood Transfusion Reaction / Comment(s): OCCASIONAL NAUSEA. Smoking Status: Current every day smoker - Past Family History Mother Family Medical History: Cancer Additional Family Medical History / Comment(s): Colon cancer. Sister(s) Additional Family Medical History / Comment(s): Colon Polyps. Father Family Medical History: Cancer, CVA/TIA, Diabetes Mellitus Additional Family Medical History / Comment(s): Paternal aunt had breast cancer. Medications and Allergies Home Medications Medication Instructions Recorded Confirmed Type amLODIPine BESYLATE [Norvasc] 5 mg PO QAM 01/06/18 10/07/23 History Pantoprazole [Protonix] 40 mg PO DAILY 12/16/18 10/07/23 History Folic Acid 0.4 mg PO DAILY 01/21/23 10/07/23 History methIMAzole [Tapazole] 5 mg PO DAILY 01/21/23 10/07/23 History cefUROXime axetiL [Ceftin] 500 mg PO BID 10/07/23 10/07/23 History hydrOXYzine HCL [Atarax] 25 mg PO DAILY 10/07/23 10/07/23 History Allergies Allergy/AdvReac Type Severity Reaction Status Date / Time No Known Allergies Allergy Verified 10/07/23 09:11 Physical Examination Physical exam: Patient is awake, alert, and oriented 3 Vital signs stable Good chest excursion with deep inspiration and expiration Abdomen soft nontender Left lower extremity is shortened and externally rotated with her hip flexed Pain with palpation of the left hip Significant pain with internal and external rotation of the left hip No pain with internal and external rotation of the right hip Neurovascularly intact bilateral lower extremities Dorsiflexion, plantarflexion, and extensor hallucis longus positive sustained bilaterally Calves are soft and supple; No signs or symptoms of DVT; No calf pain Results Pertinent studies: X-rays of the left hip and pelvis taken on 10/07/2023: Acute slightly impacted subcapital left hip fracture - Labs Labs: Abnormal Lab Results - Last 24 Hours (Table) 10/07/23 10/07/23 Range/Units 04:37 04:37 MCV 100.6 H (80.0-100.0) fL Lymphocytes # 0.9 L (1.0-4.8) k/uL Sodium 135 L (137-145) mmol/L BUN 19 H (7-17) mg/dL AST 39 H (14-36) U/L H & H 10/07/23 Range/Units 04:37 Hgb 14.3 (11.4-16.0) gm/dL Hct 44.9 (34.0-46.0) % Coagulation 10/07/23 Range/Units 04:37 INR 1.0 (<1.2) Result Diagrams: 10/07/23 04:37 10/07/23 04:37 Assessment and Plan Assessment: Assessment: Acute left hip pain Status post fall Inability to ambulate on left hip due to fracture Impacted left subcapital hip fracture Current everyday smoker Current everyday alcohol drinker COPD Diabetes mellitus Hypertension Renal disease Thyroid disorder (1) Subcapital fracture of left hip Current Visit: Yes Status: Acute Code(s): S72.012A - UNSP INTRACAPSULAR FRACTURE OF LEFT FEMUR, INIT FOR CLOS FX SNOMED Code(s): 763157813 (2) Inability to ambulate due to hip Current Visit: Yes Status: Acute Code(s): R26.2 - DIFFICULTY IN WALKING, NOT ELSEWHERE CLASSIFIED SNOMED Code(s): 195813897 (3) Status post fall Current Visit: Yes Status: Acute Code(s): Z91.81 - HISTORY OF FALLING SNOMED Code(s): 697456842 (4) Left hip pain Current Visit: Yes Status: Acute Code(s): M25.552 - PAIN IN LEFT HIP SNOMED Code(s): 71138065 (5) Smoker Current Visit: Yes Status: Acute Code(s): F17.200 - NICOTINE DEPENDENCE, UNSPECIFIED, UNCOMPLICATED SNOMED Code(s): 70108546 (6) Daily consumption of alcohol Current Visit: Yes Status: Acute Code(s): Z78.9 - OTHER SPECIFIED HEALTH STATUS SNOMED Code(s): 695702871 (7) COPD (chronic obstructive pulmonary disease) Current Visit: Yes Status: Acute Code(s): J44.9 - CHRONIC OBSTRUCTIVE PULMONARY DISEASE, UNSPECIFIED SNOMED Code(s): 38861700 (8) Diabetes mellitus Current Visit: Yes Status: Acute Code(s): E11.9 - TYPE 2 DIABETES MELLITUS WITHOUT COMPLICATIONS SNOMED Code(s): 12945007 (9) Hypertension Current Visit: Yes Status: Acute Code(s): I10 - ESSENTIAL (PRIMARY) HYPERTENSION SNOMED Code(s): 05253798 (10) Renal disease Current Visit: Yes Status: Acute Code(s): N28.9 - DISORDER OF KIDNEY AND URETER, UNSPECIFIED SNOMED Code(s): 74294539 (11) Thyroid disorder Current Visit: Yes Status: Acute Code(s): E07.9 - DISORDER OF THYROID, UNSPECIFIED SNOMED Code(s): 07400804 Plan: Plan: 1. Patient is known to have an impacted left subcapital hip fracture status post fall. She has been unable to ambulate and has acute hip pain status post fall. Patient does have multiple medical diagnoses. She has been seen and examined by medicine. Patient needs pulmonary clearance prior to surgical intervention. She will currently remain nonweightbearing and on bedrest. We will plan for placement of Beckwith catheter. This has been ordered. She may resume a regular diet today. We will make her NPO at midnight, 10/08/2023, in anticipation for surgical intervention tomorrow if cleared by multiple medical providers including medicine and pulmonology. I discussed these issues with the patient at length and I answered all of their questions to the best of my ability and the patient understands. I discussed the risk of surgical intervention and alternative treatment options. The risk of surgical intervention was explained to the patient in detail including but not limited to risk of bleeding, risk of infection, risk and need for further surgery, risk of decreased loss of motion of function, malunion, nonunion, hardware failure, nerve damage, paralysis, heart attack, , as well as the fact that surgery may not alleviate her symptoms. We did discuss surgical intervention at her left hip gives her the best ability to improve her ambulation and mobility status. I answered all the patient's questions the best of my ability. The patient would like to proceed forward with surgical intervention and will sign informed consent. 2. Patient will continue to be seen examined by multiple medical providers including medicine and pulmonology. Will plan to proceed for surgical intervention once medically stable and cleared with plans for surgical intervention, tomorrow, 10/08/2023. Time with Patient: Greater than 30 (Including obtaining history, physical examination, reviewing of imaging, and dictation.)
[2023-10-07] MEDS: MORPHINE SULFATE 4 MG/ML SYRINGE IV PRN (09:38)
[2023-10-07] MEDS: NICOTINE 21MG/24HR PATCH TRANSDERM SCH (09:39)
[2023-10-07] MEDS: THIAMINE 100 MG/ML 2 ML VIAL IVP SCH (09:39)
[2023-10-07] MEDS: HYDROmorphone 0.5 MG/0.5 ML SYRINGE IVP PRN (13:33)
[2023-10-07] MEDS ORDERED: HYDROcodone/APAP 5-325MG 1 EACH TAB PO PRN (16:20)
[2023-10-07] MEDS: HYDROmorphone 1 MG/ML 1 ML SYRINGE IVP PRN (17:21)
[2023-10-07] MEDS: HYDROcodone/APAP 5-325MG 1 EACH TAB PO PRN (21:53)
[2023-10-07] MEDS: FAMOTIDINE 20 MG/2 ML VIAL IV SCH (21:54)
--- NOTE | 2023-10-07 22:03 | P.CNPUL ---
History of Present Illness Consult date: 10/07/23 Reason for consult: COPD History of present illness: This is a 67-year-old female patient who sustained a fall and left hip fracture. The patient was drinking alcohol and she was unsteady and she fell landing on her left hip and upon arrival to the emergency the patient was found to have a left subcapital hip fracture. Patient was seen by orthopedic surgery and the patient will be taken to the operating room for ORIF in a.m. The patient is currently having some pain but seems to be under adequate control. The patient is known to have chronic smoking and COPD in addition to hypertension and suspected alcoholism. She also admits to use marijuana. No significant cough or sputum production. No significant dyspnea at rest. The chest x-ray that was done at the time of admission showed some mild cardiomegaly without any acute cardiopulmonary process and the patient is currently on room air oxygen with a pulse ox of 91%. Patient is on DuoNeb nebulizer treatments [id number]. Patient is using incentive spirometer. No signs of any alcohol withdrawals or delirium tremens and the patient is on normal saline at rate of 50 cc an hour and thiamine 100 mg IV every 24 hours. Dilaudid for pain control. No previous history of DVT or pulmonary embolism. No history of any cardiac disease. Review of Systems Constitutional: Denies chills, Denies fever Eyes: denies as per HPI, denies blurred vision, denies bulging eye, denies decreased vision, denies diplopia, denies discharge, denies dry eye, denies irritation, denies itching, denies pain, denies photophobia, denies loss of peripheral vision, denies loss of vision, denies tunnel vision/blind spots Ears: deny: decreased hearing, ear discharge, earache, tinnitus Ears, nose, mouth and throat: Reports as per HPI Breasts: absent: as per HPI, change in shape, gynecomastia, masses, nipple discharge, pain, skin changes, swelling Cardiovascular: Reports decreased exercise tolerance Respiratory: Reports as per HPI Gastrointestinal: Reports as per HPI Genitourinary: Reports as per HPI Menstruation: Reports as per HPI Musculoskeletal: Reports fractures Musculoskeletal: absent: ankle pain, ankle stiffness, ankle swelling Integumentary: Reports as per HPI Neurological: Reports as per HPI Psychiatric: Reports as per HPI Endocrine: Reports as per HPI, Reports fatigue Hematologic/Lymphatic: Reports as per HPI Past Medical History Past Medical History: COPD, Diabetes Mellitus, GERD/Reflux, Hypertension, Memory Impairment, Renal Disease, Thyroid Disorder Additional Past Medical History / Comment(s): "Borderline diabetes", interstitial cystitis, varicose veins, Stage 2 Kidney Failure. History of Any Multi-Drug Resistant Organisms: None Reported Past Surgical History: Breast Surgery, Hysterectomy, Orthopedic Surgery, Tubal Ligation Additional Past Surgical History / Comment(s): HEMORRHOIDECTOMY. NASAL FX REPAIR. EXC POLYPS IN THROAT. RT WRIST GANGLION CYST. RT ROTATOR CUFF SURG. 3 breast biopsies, VOCAL LESION REMOVAL X2. Past Anesthesia/Blood Transfusion Reactions: Postoperative Nausea & Vomiting (PONV) Additional Past Anesthesia/Blood Transfusion Reaction / Comment(s): OCCASIONAL NAUSEA. Smoking Status: Current every day smoker - Past Family History Mother Family Medical History: Cancer Additional Family Medical History / Comment(s): Colon cancer. Sister(s) Additional Family Medical History / Comment(s): Colon Polyps. Father Family Medical History: Cancer, CVA/TIA, Diabetes Mellitus Additional Family Medical History / Comment(s): Paternal aunt had breast cancer. Medications and Allergies Home Medications Medication Instructions Recorded Confirmed Type amLODIPine BESYLATE [Norvasc] 5 mg PO QAM 01/06/18 10/07/23 History Pantoprazole [Protonix] 40 mg PO DAILY 12/16/18 10/07/23 History Folic Acid 0.4 mg PO DAILY 01/21/23 10/07/23 History methIMAzole [Tapazole] 5 mg PO DAILY 01/21/23 10/07/23 History cefUROXime axetiL [Ceftin] 500 mg PO BID 10/07/23 10/07/23 History hydrOXYzine HCL [Atarax] 25 mg PO DAILY 10/07/23 10/07/23 History Allergies Allergy/AdvReac Type Severity Reaction Status Date / Time No Known Allergies Allergy Verified 10/07/23 09:11 Physical Exam Vitals: Vital Signs Temp Pulse Pulse Resp BP BP Pulse Ox 10/07/23 09:44 74 18 10/07/23 07:56 97.8 F 74 18 109/72 92 L 10/07/23 05:52 98.5 F 77 17 138/78 91 L 10/07/23 05:00 98.9 F 83 16 149/86 94 L 10/07/23 02:13 97.9 F 84 18 143/94 94 L Intake and Output 10/07/23 10/07/23 10/07/23 06:59 14:59 22:59 Intake Total 1000 Output Total 300 Balance 700 Intake: IV 1000 Invasive Line 1 1000 Output: Urine 300 Uretheral (Beckwith) 300 Other: Voiding Method Indwelling Catheter Weight 47.627 kg Results - Laboratory Findings CBC and BMP: 10/07/23 04:37 10/07/23 04:37 PT/INR, D-dimer PT 10.8 sec (10.0-12.5) 10/07/23 04:37 INR 1.0 (<1.2) 10/07/23 04:37 Abnormal lab findings: Abnormal Labs 10/07/23 10/07/23 04:37 04:37 MCV 100.6 H Lymphocytes # 0.9 L Sodium 135 L BUN 19 H AST 39 H Assessment and Plan Plan: Acute left subcapital hip fracture secondary to fall Left hip pain secondary to above Acute alcohol intoxication, possibly compounded by alcoholism COPD with history of tobacco marijuana smoking, stable no signs of any COPD exacerbation. Hypertension Diabetes mellitus Hypertension thyroidism maintained on methimazole on outpatient basis History of interstitial cystitis Plan The patient's oxygenation is stable and the patient's room air pulse ox is in the order of 91 to 92%. Chest x-ray shows no acute abnormalities. No signs of any pneumonia or aspiration. Watch for any signs of delirium tremens. No pulmonary contraindications for surgery under general anesthesia.. Will be glad to follow this patient's postoperative care and attempt for any pulmonary or critical care needs..
[2023-10-08] MEDS ORDERED: TRANEXAMIC 1,000 MG/100ML-NACL 1,000 MG in SALINE 1 100ML.BAG IVPB PRN (05:00)
[2023-10-08] MEDS: PANTOPRAZOLE 40 MG TABLET PO SCH (06:46)
[2023-10-08] MEDS: hydrOXYzine HCL 25 MG TAB PO SCH (07:58)
[2023-10-08] MEDS: IV FLUID CONTINUATION 1,000 ML IV ONE ×2 (12:16→14:16)
[2023-10-08] MEDS ORDERED: NALOXONE 0.4 MG/ML 1 ML VIAL IV PRN (13:00)
[2023-10-08] MEDS ORDERED: ONDANSETRON 4 MG/2 ML VIAL IVP PRN (13:07)
[2023-10-08] MEDS ORDERED: MAGNESIUM HYDROXIDE 2,400 MG/30 ML CUP PO PRN (13:07)
[2023-10-08] MEDS: LACTATED RINGERS 1,000 ML BAG IV STA (14:16)
[2023-10-08] MEDS: MIDAZOLAM 2 MG/2 ML VIAL IVP ONE (14:26)
[2023-10-08] MEDS: IPRATROPIUM-ALBUTEROL 3 ML NEB INHALATION PRN (14:44)
[2023-10-08 14:48] LABS: Glucose,Whole Blood 95 mg/dL (70-110)
--- NOTE | 2023-10-08 14:48 | P.ANPRN ---
Procedure Note - Anesthesia - Nerve Block Performed Left Sixto Single Time Out Performed: Yes Date of Procedure: 10/08/23 Procedure Start Time: 14:22 Procedure Stop Time: 14:27 Location of Patient: PreOp Indication: Acute Post-Operative Pain, Analgesia, Requested by Surgeon Sedation Type: Sedate with meaningful contact maintained Preparation: Sterile Prep Position: Supine Catheter: None Needle Types: Pajunk Needle Gauge: 21 Ultrasound used to visualize needle placement: Yes Ultrasound used to observe medication spread: Yes Injectate: 0.5% Ropivacaine (see comment for volume) (Ropiv 20ml+[id number]) Blood Aspirated: No Pain Paresthesia on Injection Noted: No Resistance on Injection: Normal Image Stored and Saved: Yes Events: Uneventful and Well Tolerated
[2023-10-08] MEDS: ONDANSETRON 4 MG/2 ML VIAL IVP ONE (14:50)
[2023-10-08] MEDS: DEXAMETHASONE SOD PHOSPHATE 4 MG/ML 1 ML VIAL IVP STA (14:50)
--- NOTE | 2023-10-08 15:17 | P.PN ---
Subjective Progress Note Date: 10/08/23 This is a 67-year-old female patient who sustained a fall and left hip fracture. The patient was drinking alcohol and she was unsteady and she fell landing on her left hip and upon arrival to the emergency the patient was found to have a left subcapital hip fracture. Patient was seen by orthopedic surgery and the patient will be taken to the operating room for ORIF in a.m. The patient is currently having some pain but seems to be under adequate control. The patient is known to have chronic smoking and COPD in addition to hypertension and suspected alcoholism. She also admits to use marijuana. No significant cough or sputum production. No significant dyspnea at rest. The chest x-ray that was done at the time of admission showed some mild cardiomegaly without any acute cardiopulmonary process and the patient is currently on room air oxygen with a pulse ox of 91%. Patient is on DuoNeb nebulizer treatments [id number]. Patient is using incentive spirometer. No signs of any alco hol withdrawals or delirium tremens and the patient is on normal saline at rate of 50 cc an hour and thiamine 100 mg IV every 24 hours. Dilaudid for pain control. No previous history of DVT or pulmonary embolism. No history of any cardiac disease. 10/08/2023, the patient is clinically stable. The patient is awaiting surgery as the patient is supposed to undergo a left hip ORIF. No respiratory difficulties for now. Patient remains calm and comfortable on 3 L of oxygen by nasal cannula with a pulse ox of 97%. No other significant events overnight. Hemodynamically stable. Objective - Vital Signs Vital signs: Vital Signs Temp 98.0 F 10/08/23 07:45 Pulse 79 10/08/23 08:05 Resp 17 10/08/23 08:05 BP 148/81 10/08/23 07:45 Pulse Ox 91 L 10/08/23 07:45 FiO2 Intake & Output 10/07/23 10/08/23 10/08/23 18:59 06:59 18:59 Output Total 200 350 Balance -200 -350 Output: Urine 200 350 Other: Voiding Method Indwelling Catheter Indwelling Catheter Indwelling Catheter - Exam Patient is awake, alert, and oriented 3, currently on 3 L oxygen by nasal cannula. Head exam was generally normal. There was no scleral icterus or corneal arcus. Mucous membranes were moist. Neck was supple and without jugular venous distension, thyromegaly, or carotid bruits. Carotids were easily palpable bilaterally. There was no adenopathy. Lung sounds are diminished bilaterally along with few scattered expiratory wheezes Cardiac exam revealed the PMI to be normally situated and sized. The rhythm was regular and no extrasystoles were noted during several minutes of auscultation. The first and second heart sounds were normal and physiologic splitting of the second heart sound was noted. There were no murmurs, rubs, clicks, or gallops. Abdominal exam revealed normal bowel sounds. The abdomen was soft, non-tender, and without masses, organomegaly, or appreciable enlargement of the abdominal aorta. Left lower extremity is shortened and externally rotated with her hip flexed Pain with palpation of the left hip Significant pain with internal and external rotation of the left hip No pain with internal and external rotation of the right hip Neurovascularly intact bilateral lower extremities Dorsiflexion, plantarflexion, and extensor hallucis longus positive sustained bilaterally Calves are soft and supple; No signs or symptoms of DVT; No calf pain - Labs CBC & Chem 7: 10/07/23 04:37 10/07/23 04:37 Assessment and Plan Plan: Acute left subcapital hip fracture secondary to fall, awaiting ORIF. Stable pulmonary status. Left hip pain secondary to above Acute alcohol intoxication, possibly compounded by alcoholism, no signs of any alcohol withdrawal COPD with history of tobacco marijuana smoking, stable no signs of any COPD exacerbation. Hypertension Diabetes mellitus Hypertension thyroidism maintained on methimazole on outpatient basis History of interstitial cystitis Plan The patient's oxygenation is stable and the patient's room air pulse ox is in the order of 91 to 92%. Chest x-ray shows no acute abnormalities. No signs of any pneumonia or aspiration. Watch for any signs of delirium tremens. No pulmonary contraindications for surgery under general anesthesia.. Will be glad to follow this patient's postoperative care and attempt for any pulmonary or critical care needs.. Will continue to follow this patient along with the surgical team.
[2023-10-08] MEDS ORDERED: DEXAMETHASONE SOD PHOSPHATE 4 MG/ML 1 ML VIAL ONE (15:28)
[2023-10-08] MEDS ORDERED: TRANEXAMIC 1,000 MG/100ML-NACL PREMIX BAG ONE (15:28)
[2023-10-08] MEDS ORDERED: KETAMINE HCL IN 0.9 % NACL 50 MG/5 ML SYRINGE ONE (15:28)
[2023-10-08] MEDS ORDERED: fentaNYL (PF) 50 MCG/ML 2 ML AMP ONE (15:28)
[2023-10-08] MEDS ORDERED: MIDAZOLAM 2 MG/2 ML VIAL ONE (15:28)
[2023-10-08] MEDS ORDERED: PROPOFOL 10 MG/ML 20 ML VIAL IV ONE (15:28)
[2023-10-08] MEDS ORDERED: PHENYLEPHRINE-0.9% NACL SYG 1,000 MCG/10 ML SYRINGE ONE (15:28)
[2023-10-08] MEDS ORDERED: ROPIVACAINE 5 MG/ML 30 ML VIAL ONE (15:28)
--- NOTE | 2023-10-08 16:27 | P.OP ---
Date of Procedure: 10/08/23 Preoperative Diagnosis: Subcapital fracture left hip Postoperative Diagnosis: Subcapital fracture left hip Procedure(s) Performed: Hemiarthroplasty of the left hip with a direct anterior approach Implants: Lucio and nephew Polarstem size 3 standard with a collar [employer]hew tandem unipolar, 44 mm [employer]hew tandem unipolar 12/14 taper sleeve, +0 mm All components were press-fit. Anesthesia: spinal Surgeon: Pino Marquez Cable Armorer Operator #1: Ally Sage Estimated Blood Loss (ml): 100 Pathology: none sent Condition: stable Disposition: PACU Indications for Procedure: This is a 67-year-old female that sustained a ground-level fall at home. X-rays demonstrate a displaced fracture of the subcapital left hip. After discussing the surgical and nonsurgical treatment options with her and her family at length, I recommended a left hip hemiarthroplasty with a direct anterior approach. Informed consent was obtained. Operative Findings: The operative findings are consistent with a subcapital fracture of the left hip Description of Procedure: The patient was seen and evaluated in the preoperative area and the consent was reviewed. The operative site was marked with a skin marker. The patient verified the procedure and operative site. The patient was then brought to the operating room and given preoperative antibiotics intravenously. A spinal anes thetic was administered by the anesthesia department. The patient was then placed on the [place] table with the bony prominences well-padded. The hip area was then prepped with a ChloraPrep solution and draped in the usual sterile fashion. A universal timeout was then performed, which confirmed the patient's name, surgical site, ALLERGIES, and procedure being performed on the consent. Next the incision site was located at 1 cm distal and 4 cm lateral to the anterior superior iliac spine. The skin and subcutaneous tissues were sharply incised. Incision was carefully dissected down to the fascia overlying the tensor fascia naa muscle. This fascia was then incised in line with the muscle fibers. Care was taken to stay laterally in order to avoid injuring the lateral femoral cutaneous nerve. Next, using blunt finger dissection, the tensor fascia naa muscle was dissected off its investing fascia. The muscle was then carefully retracted laterally with a cobra retractor over the lateral neck of the femur. Next, the circumflex vessels were identified and cauterized using the Aquamantis device. The anterior hip capsule was then exposed. The capsule was then opened and an inverted T fashion. The retractors were then placed intracapsularly. The retractors were maintained intracapsular throughout the procedure. The proximal femur was then visualized. The subcapital fracture was visualized. A small amount of traction was placed on the leg. The femoral neck was then osteotomized at the appropriate level above the lesser trochanter. A small wedge of bone was then removed from the remaining femoral head. Next, using a corkscrew the femoral head was removed from the acetabulum. The femoral head was then measured. Attention was then turned to the acetabulum. The acetabulum was exposed and inspected. There was very little evidence of arthritis in the acetabulum. Attention was then directed to the femur. With the aid of the [place] table, the femur was externally rotated to approximately 130, extended, and adducted under the opposite leg. A side hook was then placed under the proximal femur, and the side hook elevator was used to elevate the proximal femur while releasing the capsule. Retractors were then placed. A capsular release was performed, as well as a release of the conjoined tendon, which afforded excellent visualization of the proximal femur. Next, a box osteotome was used to lateralize the proximal femur. A whizzer hand was then used to locate the femoral canal. Sequential broaching was then performed with appropriate size which afforded excellent fixation in the proximal femur. A trial was then placed with appropriate head and neck, and the hip was gently reduced with the aid of the [place] table. Fluoroscopy was then used to check position of the components, as well as to evaluate the leg lengths and offset. The leg lengths and offset were measured as closely as possible to ensure stability of the hip. The hip was then gently dislocated and the trials were then removed. Final implants were then impacted and the hip was again reduced. Final fluoroscopic x-rays confirmed that the components were in anatomic position. The leg lengths and offset were measured and were found to coincide with the trial measurements. The hip was also taken through range of motion, and found to be stable. The hip was then copiously irrigated with antibiotic solution with pulsatile lavage. The hip was then irrigated with Irrisept solution. A dose of 1 g of Tranexamic acid was also given intravenously. The fascia was then closed with 2-0 strata fix suture. The subcutaneous tissue was closed with 3-0 Vicryl. The subcuticular tissue was closed with 3-0 strata fix suture. The skin was then closed with Exofin skin glue. After the glue and dried, and Optifoam silver impregnated dressing was applied. The patient was then transferred to the recovery room in stable condition. The assistant athletic trainer NITESH Avalos was required due to the complexity of surgery, and the need for skilled nursing surgical services director for positioning, draping, exposure, retraction, and closure of the wound.
--- NOTE | 2023-10-08 16:54 | XR ---
EXAMINATION TYPE: XR Hip Limited LT, FL guidance operating room DATE OF EXAM: 10/08/2023 Comparison: None Clinical History: 67-year-old female Left Hip-Lamberto Findings: LT hip lamberto with Heithoff. 2 images saved. 11 sec fluoro time. 0.3630 Gycm2 DAP.
[2023-10-08] MEDS: SODIUM CHLORIDE 0.9% 1,000 ML IV SCH (17:27)
--- NOTE | 2023-10-08 17:46 | XR ---
EXAMINATION TYPE: XR Hip Limited AP LT DATE OF EXAM: 10/08/2023 Comparison: None Clinical History: 67-year-old female Status post hip surgery, assess surgical alignment Findings: Image shows placement of left hip hemiarthroplasty. Femoral stem component appears well seated withou t periprosthetic fracture. Alignment grossly anatomic. Soft tissue air related to recent operation. Impression: Uncomplicated postoperative appearance left hip rekha- arthroplasty.
[2023-10-08] MEDS: SENNOSIDES-DOCUSATE SODIUM 1 EACH TAB PO SCH (20:07)
[2023-10-09] MEDS: APIXABAN 5 MG TAB PO SCH (08:59)
[2023-10-09 09:02] LABS: Basophils # (A) 0.03 X 10*3/uL (0.00-0.10); Basophils % (A) 0.4 %; Eosinophils # (A) 0 X 10*3/uL (0.04-0.35); Eosinophils % (A) 0 %; HCT 42.4 % (37.2-46.3); HGB 13.8 g/dL (12.0-15.0); Lymphocytes # (A) 0.87 X 10*3/uL (0.90-5.00); MCH 31.9 pg (27.0-32.0); MCHC 32.5 g/dL (32.0-37.0); MCV 98.1 FL (80.0-97.0); Mean Platelet Volume 9.4 FL (9.5-12.2); Monocytes # (A) 0.48 X 10*3/uL (0.20-1.00); Monocytes % (A) 7.2 %; NRBC Per 100 WBC 0 X 10*3/uL (0.00-0.01); Platelet Count 191 X 10*3/uL (140-440); RBC 4.32 X 10*6/uL (4.10-5.20); WBC 6.71 X 10*3/uL (4.50-10.00)
--- NOTE | 2023-10-09 10:08 | P.PN ---
Subjective Progress Note Date: 10/09/23 This is a 67-year-old female who is status post hemiarthroplasty of the left hip with a direct anterior approach for subcapital fracture of the left hip. This is postoperative day #1 and patient is seen and evaluated at bedside with Dr. Pino Marquez. Patient states that she is very sore in the left hip and requires assistance from nursing staff for any transferring. Patient states that her pain does improve with rest. Patient denies any fever/chills, chest pain, shortness breath, abdominal pain, numbness, weakness or tingling. Objective - Vital Signs Vital signs: Vital Signs Temp 98.5 F 10/09/23 07:46 Pulse 86 10/09/23 07:46 Resp 16 10/09/23 07:46 BP 155/92 10/09/23 07:46 Pulse Ox 93 L 10/09/23 07:46 FiO2 Intake & Output 10/08/23 10/09/23 10/09/23 18:59 06:59 18:59 Intake Total 600 Output Total 1400 1100 Balance -800 -1100 Weight 47.627 kg Intake: IV 600 Output: Urine 1300 1100 Estimated Blood Loss 100 Other: Voiding Method Indwelling Catheter Indwelling Catheter - Exam Vital signs are stable. Patient is in no acute distress and is alert and oriented 3. Calf is soft and nontender to palpation. Dressing is clean, dry, and intact. Patient has full foot and ankle motion without pain or difficulty. Sensation intact. Neurovascular status and circulatory status are intact. - Labs CBC & Chem 7: 10/09/23 04:10 10/07/23 04:37 Labs: Abnormal Lab Results - Last 24 Hours (Table) 10/09/23 Range/Units 04:10 MCV 98.1 H (80.0-97.0) FL MPV 9.4 L (9.5-12.2) FL Lymphocytes # 0.87 L (0.90-5.00) X 10*3/uL Eosinophils # 0 L (0.04-0.35) X 10*3/uL Assessment and Plan (1) S/P hip hemiarthroplasty Current Visit: Yes Status: Acute Code(s): Z96.649 - PRESENCE OF UNSPECIFIED ARTIFICIAL HIP JOINT SNOMED Code(s): 081229837 (2) COPD (chronic obstructive pulmonary disease) Current Visit: Yes Status: Acute Code(s): J44.9 - CHRONIC OBSTRUCTIVE PULMON LOLY DISEASE, UNSPECIFIED SNOMED Code(s): 58030273 (3) Daily consumption of alcohol Current Visit: Yes Status: Acute Code(s): Z78.9 - OTHER SPECIFIED HEALTH STATUS SNOMED Code(s): 753662409 (4) Diabetes mellitus Current Visit: Yes Status: Acute Code(s): E11.9 - TYPE 2 DIABETES MELLITUS WITHOUT COMPLICATIONS SNOMED Code(s): 52718468 (5) Smoker Current Visit: Yes Status: Acute Code(s): F17.200 - NICOTINE DEPENDENCE, UNSPECIFIED, UNCOMPLICATED SNOMED Code(s): 92667424 (6) Status post fall Current Visit: Yes Status: Acute Code(s): Z91.81 - HISTORY OF FALLING SNOMED Code(s): 283781035 Plan: Continue routine postop care and pain control. Continue anticoagulation with Eliquis. Weightbearing as tolerated with a walker. Leave dressing in place for 7 days. Appreciate input from internal medicine. Anticipate discharge to [facility] in the next 24-48 hours.
[2023-10-09] MEDS ORDERED: HYDROcodone/APAP 7.5-325MG 1 EACH TAB PO PRN (10:09)
[2023-10-09] MEDS: HYDROcodone/APAP 7.5-325MG 1 EACH TAB PO PRN (11:10)
--- NOTE | 2023-10-09 18:49 | P.PN ---
Subjective Progress Note Date: 10/09/23 This is a 67-year-old female patient who sustained a fall and left hip fracture. The patient was drinking alcohol and she was unsteady and she fell landing on her left hip and upon arrival to the emergency the patient was found to have a left subcapital hip fracture. Patient was seen by orthopedic surgery and the patient will be taken to the operating room for ORIF in a.m. The patient is currently having some pain but seems to be under adequate control. The patient is known to have chronic smoking and COPD in addition to hypertension and suspected alcoholism. She also admits to use marijuana. No significant cough or sputum production. No significant dyspnea at rest. The chest x-ray that was done at the time of admission showed some mild cardiomegaly without any acute cardiopulmonary process and the patient is currently on room air oxygen with a pulse ox of 91%. Patient is on DuoNeb nebulizer treatments [id number]. Patient is using incentive spirometer. No signs of any alco hol withdrawals or delirium tremens and the patient is on normal saline at rate of 50 cc an hour and thiamine 100 mg IV every 24 hours. Dilaudid for pain control. No previous history of DVT or pulmonary embolism. No history of any cardiac disease. 10/08/2023, the patient is clinically stable. The patient is awaiting surgery as the patient is supposed to undergo a left hip ORIF. No respiratory difficulties for now. Patient remains calm and comfortable on 3 L of oxygen by nasal cannula with a pulse ox of 97%. No other significant events overnight. Hemodynamically stable. On 10/09/2023, the patient is being seen for a follow-up. The patient is post left hip ORIF/hemiarthroplasty and the patient is currently postop day #1. Surgery was done on 10/08/2023 without any significant complications. The patient is currently resting comfortably in bed. No active pain. She is currently on 3 Suboxone by nasal cannula with pulse ox of 92%. Respiratory status is stable. Hemodynamically stable. The white cell count at 6.7 with a hemoglobin 13.8 and a platelet count of 191. Adequate pain control and the patient is currently on [place]. She remains on normal citrate of 65 cc an hour. She remains on anticoagulation with Eliquis 2.5 mg twice a day. She remains on DuoNeb nebulized treatments [id number]. Using incentive spirometer. Objective - Vital Signs Vital signs: Vital Signs Temp 98.3 F 10/09/23 13:49 Pulse 86 10/09/23 13:49 Resp 15 10/09/23 13:49 BP 115/73 10/09/23 13:49 Pulse Ox 92 L 10/09/23 13:49 FiO2 Intake & Output 10/08/23 10/09/23 10/09/23 18:59 06:59 18:59 Intake Total 600 Output Total 1400 1100 Balance -800 -1100 Weight 47.627 kg Intake: IV 600 Output: Urine 1300 1100 Estimated Blood Loss 100 Other: Voiding Method Indwelling Catheter Indwelling Catheter - Exam Patient is awake, alert, and oriented 3, currently on 3 L oxygen by nasal cannula. Head exam was generally normal. There was no scleral icterus or corneal arcus. Mucous membranes were moist. Neck was supple and without jugular venous distension, thyromegaly, or carotid bruits. Carotids were easily palpable bilaterally. There was no adenopathy. Lung sounds are diminished bilaterally along with few scattered expiratory wheezes Cardiac exam revealed the PMI to be normally situated and sized. The rhythm was regular and no extrasystoles were noted during several minutes of auscultation. The first and second heart sounds were normal and physiologic splitting of the second heart sound was noted. There were no murmurs, rubs, clicks, or gallops. Abdominal exam revealed normal bowel sounds. The abdomen was soft, non-tender, and without masses, organomegaly, or appreciable enlargement of the abdominal aorta. Left lower extremity is shortened and externally rotated with her hip flexed Pain with palpation of the left hip Significant pain with internal and external rotation of the left hip No pain with internal and external rotation of the right hip Neurovascularly intact bilateral lower extremities Dorsiflexion, plantarflexion, and extensor hallucis longus positive sustained bilaterally Calves are soft and supple; No signs or symptoms of DVT; No calf pain - Labs CBC & Chem 7: 10/09/23 04:10 10/07/23 04:37 Labs: Abnormal Lab Results - Last 24 Hours (Table) 10/09/23 Range/Units 04:10 MCV 98.1 H (80.0-97.0) FL MPV 9.4 L (9.5-12.2) FL Lymphocytes # 0.87 L (0.90-5.00) X 10*3/uL Eosinophils # 0 L (0.04-0.35) X 10*3/uL Assessment and Plan Plan: Acute left subcapital hip fracture secondary to fall, completed left hip hemiarthroplasty and the patient is currently postop day #1. Left hip pain secondary to above, improved and the patient is currently on [place] Acute alcohol intoxication, possibly compounded by alcoholism, no signs of any alcohol withdrawal COPD with history of tobacco marijuana smoking, stable no signs of any COPD exacerbation. Patient is currently on 3 l of oxygen by nasal cannula Hypertension Diabetes mellitus Hypertension thyroidism maintained on methimazole on outpatient basis History of interstitial cystitis Plan Oxygenation is stable Continue using incentive spirometer Chest x-ray showed no acute abnormalities We will continue watching for any signs of delirium tremens Surgery was completed without any major respiratory complications Continue [facility] Continue anticoagulation with Eliquis 2.5 mg twice a day Surgical scar is dry clean and intact Outpatient medication resumed Walking with the help of a walker Will continue to follow
--- NOTE | 2023-10-09 22:30 | P.PN ---
Subjective patient was in surgery Objective - Vital Signs Vital signs: Vital Signs Temp 98.2 F 10/08/23 16:45 Pulse 83 10/08/23 17:18 Resp 16 10/08/23 17:18 BP 136/74 10/08/23 17:18 Pulse Ox 94 L 10/08/23 17:18 FiO2 Intake & Output 10/08/23 10/08/23 10/09/23 06:59 18:59 06:59 Intake Total 600 Output Total 350 1400 Balance -350 -800 Weight 47.627 kg Intake: IV 600 Output: Urine 350 1300 Estimated Blood Loss 100 Other: Voiding Method Indwelling Catheter Indwelling Catheter - Labs CBC & Chem 7: 10/09/23 04:10 10/07/23 04:37
--- NOTE | 2023-10-09 22:35 | P.PN ---
Subjective THIS IS A PLEASANT 67 YEARS OLD FEMALE LVH and with past medical history of alcohol use disorder, everyday smoker, Hypertension, diabetes/prediabetes, GERD, memory impairment and thyroid disease. She presents because of hip fracture after she fell at home. Patient states that she drinks every day and yesterday she drank about 5-7 drinks of whiskey and she was trying to reach out to her child to feed her when she fell on her side followed by pain on her right of the chest and her left hip area and she describes. Also her left leg is flexed at the hip.Patient describes her pain as 10/10 and especially with movement but if she stays still she will feel fine. Patient currently states she is fully awake and oriented, in mild distress due to to pain. She is also Hoarseness of voice She states that she has some shortness of breath but currently it is not bad. She has been using nebulizer twice last week after a friend gave her that ne bulizer last year. She has also some cough and occasional phlegm but no dizziness She is complaining from chest pain on both sides of the lower rib cage, she states that it happened after the fall. Also during talking she becomes a little bit short of breath. She used to smoke 1 pack/day for 48 years. She also admits to using marijuana at times. Patient counseled to quit smoking and she agrees and she agrees to the nicotine patch. Patient saw her ENT doctor last for hoarseness of voice and they found a polyp and prescribed her antibiotic but she has not taken it yet Patient vitals are reviewed, currently afebrile her oxygen little bit on the low side 92% on room air Labs were unremarkable including CBC, BMP, LFT, INR, urine analysis X-ray showing acute slightly impacted subcapital fracture of the left hip Chest x-ray showing mild cardiomegaly with no pulmonary vascular congestion, I reviewed the chest x-ray with me there is also some chronic COPD changes 10/12/2023 Patient awake at baseline Some pain from surgery site Patient overall feels fine but has difficulty moving due to her surgery and weakness Patient will benefit from rehab upon discharge. No significant wheezing and the hoarseness of the voice on day 1 significantly improved today. Objective - Vital Signs Vital signs: Vital Signs Temp 98.5 F 10/09/23 07:46 Pulse 86 10/09/23 07:46 Resp 16 10/09/23 07:46 BP 155/92 10/09/23 07:46 Pulse Ox 93 L 10/09/23 07:46 FiO2 Intake & Output 10/08/23 10/09/23 10/09/23 18:59 06:59 18:59 Intake Total 600 Output Total 1400 1100 Balance -800 -1100 Weight 47.627 kg Intake: IV 600 Output: Urine 1300 1100 Estimated Blood Loss 100 Other: Voiding Method Indwelling Catheter Indwelling Catheter - Exam GENERAL: The patient is alert and oriented x3, not in any acute distress. Well developed, well nourished. HEENT: Pupils are round and equally reacting to light. EOMI. No scleral icterus. No conjunctival pallor. Normocephalic, atraumatic. No pharyngeal erythema. No thyromegaly. CARDIOVASCULAR: S1 and S2 present. No murmurs, rubs, or gallops. PULMONARY: Chest is clear to auscultation, no wheezing , no crackles. ABDOMEN: Soft, nontender, nondistended, normoactive bowel sounds. No palpable organomegaly. -MUSCULOSKELETAL: No joint swelling or deformity. Surgical wound at hip area is dry and clean, rest of exam deferred to surgery team EXTREMITIES: No cyanosis, clubbing, or pedal edema. NEUROLOGICAL: Gross neurological examination did not reveal any focal deficits. SKIN: No rashes. no petechiae. - Labs CBC & Chem 7: 10/09/23 04:10 10/07/23 04:37 Labs: Abnormal Lab Results - Last 24 Hours (Table) 10/09/23 Range/Units 04:10 MCV 98.1 H (80.0-97.0) FL MPV 9.4 L (9.5-12.2) FL Lymphocytes # 0.87 L (0.90-5.00) X 10*3/uL Eosinophils # 0 L (0.04-0.35) X 10*3/uL Assessment and Plan Assessment: Fall without syncope at home while alcoholic intoxicated Alcohol use disorder at risk of alcohol withdrawal Acute left hip subcapital mildly impacted fracture Stridor with recent history of polyp in the larynx as per patient History of thyroid disease Hypertension COPD suspected, possible mild exacerbation Diabetes/prediabetes currently not on medication GERD Memory impairment Plan: Continue CIWA protocol Thiamine Continue bronchodilator pulmonary team on the case Labs and medication were reviewed.. Continue same treatment. Continue with symptomatic treatment. Resume home medication. Monitor labs and vitals. DVT and GI prophylaxis. Further recommendations as per clinical course of the patient DVT prophylaxis: deferred to surgery team GI Prophylaxis: Pepcid PT/OT: Pending
[2023-10-09] MEDS: amLODIPine 5 MG TAB PO SCH (22:39)
[2023-10-10] MEDS: FOLIC ACID 1 MG TAB PO SCH (08:17)
--- NOTE | 2023-10-10 11:35 | P.PN ---
Subjective Progress Note Date: 10/10/23 Principal diagnosis: subcapital fracture of the left hip This is a 68-year-old female who is status post hemiarthroplasty of the left hip with a direct anterior approach for subcapital fracture of the left hip. This is postoperative day #2 and patient is seen and evaluated at bedside. Patient states that she is very sore in the left hip but is able to ambulate with walker to the bathroom on their own. Patient states that her pain does improve with rest but is not comfortable going home until it is better controlled. Patient denies any fever/chills, chest pain, shortness breath, abdominal pain, numbness, weakness or tingling. Objective - Vital Signs Vital signs: Vital Signs Temp 99.3 F 10/10/23 06:53 Pulse 84 10/10/23 06:53 Resp 20 10/10/23 06:53 BP 113/72 10/10/23 06:53 Pulse Ox 91 L 10/10/23 06:53 FiO2 Intake & Output 10/09/23 10/10/23 10/10/23 18:59 06:59 18:59 Other: Voiding Method Toilet # Voids 2 3 - Exam Patient is in no acute distress and is alert and oriented 3. Calf is soft and nontender to palpation. Dressing is clean, dry, and intact and free of any strikethrough. Patient has full foot and ankle motion without pain or difficulty. Sensation intact. Neurovascular status and circulatory status are intact. - Labs CBC & Chem 7: 10/09/23 04:10 10/07/23 04:37 Assessment and Plan Assessment: POD#2 status post hemiarthroplasty of the left hip (1) Fracture of hip Current Visit: Yes Status: Acute Code(s): S72.009A - FRACTURE OF UNSP PART OF NECK OF UNSP FEMUR, INIT SNOMED Code(s): 842406793 Plan: Continue routine postop care and pain control. Continue anticoagulation with Eliquis. Weightbearing as tolerated with a walker. Leave dressing in place for 7 days. Appreciate input from internal medicine. Patient states their daughter can take of of them at home and would like to be discharged home in the next 24-48 hours.
--- NOTE | 2023-10-10 12:09 | P.PN ---
Subjective THIS IS A PLEASANT 67 YEARS OLD FEMALE LVH and with past medical history of alcohol use disorder, everyday smoker, Hypertension, diabetes/prediabetes, GERD, memory impairment and thyroid disease. She presents because of hip fracture after she fell at home. Patient states that she drinks every day and yesterday she drank about 5-7 drinks of whiskey and she was trying to reach out to her child to feed her when she fell on her side followed by pain on her right of the chest and her left hip area and she describes. Also her left leg is flexed at the hip.Patient describes her pain as 10/10 and especially with movement but if she stays still she will feel fine. Patient currently states she is fully awake and oriented, in mild distress due to to pain. She is also Hoarseness of voice She states that she has some shortness of breath but currently it is not bad. She has been using nebulizer twice last week after a friend gave her that ne bulizer last year. She has also some cough and occasional phlegm but no dizziness She is complaining from chest pain on both sides of the lower rib cage, she states that it happened after the fall. Also during talking she becomes a little bit short of breath. She used to smoke 1 pack/day for 48 years. She also admits to using marijuana at times. Patient counseled to quit smoking and she agrees and she agrees to the nicotine patch. Patient saw her ENT doctor last for hoarseness of voice and they found a polyp and prescribed her antibiotic but she has not taken it yet Patient vitals are reviewed, currently afebrile her oxygen little bit on the low side 92% on room air Labs were unremarkable including CBC, BMP, LFT, INR, urine analysis X-ray showing acute slightly impacted subcapital fracture of the left hip Chest x-ray showing mild cardiomegaly with no pulmonary vascular congestion, I reviewed the chest x-ray with me there is also some chronic COPD changes 10/12/2023 Patient awake at baseline Some pain from surgery site Patient overall feels fine but has difficulty moving due to her surgery and weakness Patient will benefit from rehab upon discharge. No significant wheezing and the hoarseness of the voice on day 1 significantly improved today. 10/10/23 Patient seen walking in the room using a walker, she still has difficulty lifting her left leg compared to the right side. She still have some significant pain but better than 1 to 2 days ago. She wants to go home but she is scared and she might consider rehab She is still constipated despite stool softeners and prune juice, she agrees to lactulose. Objective - Vital Signs Vital signs: Vital Signs Temp 99.3 F 10/10/23 06:53 Pulse 84 10/10/23 06:53 Resp 20 10/10/23 06:53 BP 113/72 10/10/23 06:53 Pulse Ox 91 L 10/10/23 06:53 FiO2 Intake & Output 10/09/23 10/10/23 10/10/23 18:59 06:59 18:59 Other: Voiding Method Toilet # Voids 2 3 - Exam GENERAL: The patient is alert and oriented x3, not in any acute distress. Well developed, well nourished. HEENT: Pupils are round and equally reacting to light. EOMI. No scleral icterus. No conjunctival pallor. Normocephalic, atraumatic. No pharyngeal erythema. No thyromegaly. CARDIOVASCULAR: S1 and S2 present. No murmurs, rubs, or gallops. PULMONARY: Chest is clear to auscultation, no wheezing , no crackles. ABDOMEN: Soft, nontender, nondistended, normoactive bowel sounds. No palpable organomegaly. -MUSCULOSKELETAL: No joint swelling or deformity. Surgical wound at hip area is dry and clean, rest of exam deferred to surgery team EXTREMITIES: No cyanosis, clubbing, or pedal edema. NEUROLOGICAL: Gross neurological examination did not reveal any focal deficits. SKIN: No rashes. no petechiae. - Labs CBC & Chem 7: 10/09/23 04:10 10/07/23 04:37 Assessment and Plan Assessment: Fall without syncope at home while alcoholic intoxicated Alcohol use disorder at risk of alcohol withdrawal Acute left hip subcapital mildly impacted fracture Stridor with recent history of polyp in the larynx as per patient History of thyroid disease Hypertension COPD suspected, possible mild exacerbation Diabetes/prediabetes currently not on medication GERD Memory impairment Plan: Continue CIWA protocol Thiamine Continue bronchodilator pulmonary team on the case Labs and medication were reviewed.. Continue same treatment. Continue with symptomatic treatment. Resume home medication. Monitor labs and vitals. DVT and GI prophylaxis. Further recommendations as per clinical course of the patient DVT prophylaxis: deferred to surgery team GI Prophylaxis: Pepcid PT/OT: Pending
[2023-10-10] MEDS: LACTULOSE 20 GM/30 ML CUP PO ONE (12:24)
--- NOTE | 2023-10-10 17:29 | P.PN ---
Subjective Progress Note Date: 10/10/23 This is a 67-year-old female patient who sustained a fall and left hip fracture. The patient was drinking alcohol and she was unsteady and she fell landing on her left hip and upon arrival to the emergency the patient was found to have a left subcapital hip fracture. Patient was seen by orthopedic surgery and the patient will be taken to the operating room for ORIF in a.m. The patient is currently having some pain but seems to be under adequate control. The patient is known to have chronic smoking and COPD in addition to hypertension and suspected alcoholism. She also admits to use marijuana. No significant cough or sputum production. No significant dyspnea at rest. The chest x-ray that was done at the time of admission showed some mild cardiomegaly without any acute cardiopulmonary process and the patient is currently on room air oxygen with a pulse ox of 91%. Patient is on DuoNeb nebulizer treatments [id number]. Patient is using incentive spirometer. No signs of any alco hol withdrawals or delirium tremens and the patient is on normal saline at rate of 50 cc an hour and thiamine 100 mg IV every 24 hours. Dilaudid for pain control. No previous history of DVT or pulmonary embolism. No history of any cardiac disease. 10/08/2023, the patient is clinically stable. The patient is awaiting surgery as the patient is supposed to undergo a left hip ORIF. No respiratory difficulties for now. Patient remains calm and comfortable on 3 L of oxygen by nasal cannula with a pulse ox of 97%. No other significant events overnight. Hemodynamically stable. On 10/09/2023, the patient is being seen for a follow-up. The patient is post left hip ORIF/hemiarthroplasty and the patient is currently postop day #1. Surgery was done on 10/08/2023 without any significant complications. The patient is currently resting comfortably in bed. No active pain. She is currently on 3 Suboxone by nasal cannula with pulse ox of 92%. Respiratory status is stable. Hemodynamically stable. The white cell count at 6.7 with a hemoglobin 13.8 and a platelet count of 191. Adequate pain control and the patient is currently on [place]. She remains on normal citrate of 65 cc an hour. She remains on anticoagulation with Eliquis 2.5 mg twice a day. She remains on DuoNeb nebulized treatments [id number]. Using incentive spirometer. On 10/10/2023, the patient doing well. No specific complaints. He is on 2 L of oxygen by nasal cannula. She is ambulating with the help of a walker. She is active. No respiratory distress. Remains on bronchodilators. Remains on Eliquis 2.5 mg twice a day. Adequate pain control. IV fluids are normal citrate of 50 cc an hour. No new labs are available from today. Condition is stable. Vitals are stable. Remains constipated. The patient is postop day #2 following a left hip hemiarthroplasty. Objective - Vital Signs Vital signs: Vital Signs Temp 99.3 F 10/10/23 06:53 Pulse 84 10/10/23 06:53 Resp 20 10/10/23 06:53 BP 113/72 10/10/23 06:53 Pulse Ox 91 L 10/10/23 06:53 FiO2 Intake & Output 10/09/23 10/10/23 10/10/23 18:59 06:59 18:59 Other: Voiding Method Toilet # Voids 2 3 - Exam Patient is awake, alert, and oriented 3, currently on 3 L oxygen by nasal cannula. Head exam was generally normal. There was no scleral icterus or corneal arcus. Mucous membranes were moist. Neck was supple and without jugular venous distension, thyromegaly, or carotid bruits. Carotids were easily palpable bilaterally. There was no adenopathy. Lung sounds are diminished bilaterally along with few scattered expiratory wheezes Cardiac exam revealed the PMI to be normally situated and sized. The rhythm was regular and no extrasystoles were noted during several minutes of auscultation. The first and second heart sounds were normal and physiologic splitting of the second heart sound was noted. There were no murmurs, rubs, clicks, or gallops. Abdominal exam revealed normal bowel sounds. The abdomen was soft, non-tender, and without masses, organomegaly, or appreciable enlargement of the abdominal aorta. Left lower extremity is shortened and externally rotated with her hip flexed Pain with palpation of the left hip Significant pain with internal and external rotation of the left hip No pain with internal and external rotation of the right hip Neurovascularly intact bilateral lower extremities Dorsiflexion, plantarflexion, and extensor hallucis longus positive sustained bilaterally Calves are soft and supple; No signs or symptoms of DVT; No calf pain - Labs CBC & Chem 7: 10/09/23 04:10 10/07/23 04:37 Assessment and Plan Plan: Acute left subcapital hip fracture secondary to fall, completed left hip hemiarthroplasty and the patient is currently postop day #2. Left hip pain secondary to above, improved and the patient is currently on [place] Acute alcohol intoxication, possibly compounded by alcoholism, no signs of any alcohol withdrawal COPD with history of tobacco marijuana smoking, stable no signs of any COPD exacerbation. Patient is currently on 2 l of oxygen by nasal cannula Hypertension Diabetes mellitus Hypertension thyroidism maintained on methimazole on outpatient basis History of interstitial cystitis Plan Oxygenation is stable, currently on 2 L of oxygen by nasal cannula Continue using incentive spirometer Chest x-ray showed no acute abnormalities We will continue watching for any signs of delirium tremens Surgery was completed without any major respiratory complications Continue [facility] Continue anticoagulation with Eliquis 2.5 mg twice a day Surgical scar is dry clean and intact Outpatient medication resumed Walking with the help of a walker Will continue to follow
[2023-10-11 08:46] VITALS: RESP 17
[2023-10-11 10:16] LABS: Basophils # (A) 0.02 X 10*3/uL (0.00-0.10); Basophils % (A) 0.4 %; Eosinophils % (A) 1.9 %; HCT 38.7 % (37.2-46.3); HGB 12.8 g/dL (12.0-15.0); Lymphocytes # (A) 1.31 X 10*3/uL (0.90-5.00); Lymphocytes % (A) 24.4 %; MCH 32.5 pg (27.0-32.0); MCHC 33.1 g/dL (32.0-37.0); MCV 98.2 FL (80.0-97.0); Mean Platelet Volume 9.6 FL (9.5-12.2); Monocytes # (A) 0.65 X 10*3/uL (0.20-1.00); Monocytes % (A) 12.1 %; NRBC Per 100 WBC 0 X 10*3/uL (0.00-0.01); Neutrophils # (A) 3.27 X 10*3/uL (1.80-7.70); Platelet Count 213 X 10*3/uL (140-440); RBC 3.94 X 10*6/uL (4.10-5.20); RDW 13.8 % (11.5-14.5); WBC 5.36 X 10*3/uL (4.50-10.00)
--- NOTE | 2023-10-11 14:55 | P.PN ---
Subjective Progress Note Date: 10/11/23 This is a 67-year-old female patient who sustained a fall and left hip fracture. The patient was drinking alcohol and she was unsteady and she fell landing on her left hip and upon arrival to the emergency the patient was found to have a left subcapital hip fracture. Patient was seen by orthopedic surgery and the patient will be taken to the operating room for ORIF in a.m. The patient is currently having some pain but seems to be under adequate control. The patient is known to have chronic smoking and COPD in addition to hypertension and suspected alcoholism. She also admits to use marijuana. No significant cough or sputum production. No significant dyspnea at rest. The chest x-ray that was done at the time of admission showed some mild cardiomegaly without any acute cardiopulmonary process and the patient is currently on room air oxygen with a pulse ox of 91%. Patient is on DuoNeb nebulizer treatments [id number]. Patient is using incentive spirometer. No signs of any alco hol withdrawals or delirium tremens and the patient is on normal saline at rate of 50 cc an hour and thiamine 100 mg IV every 24 hours. Dilaudid for pain control. No previous history of DVT or pulmonary embolism. No history of any cardiac disease. 10/08/2023, the patient is clinically stable. The patient is awaiting surgery as the patient is supposed to undergo a left hip ORIF. No respiratory difficulties for now. Patient remains calm and comfortable on 3 L of oxygen by nasal cannula with a pulse ox of 97%. No other significant events overnight. Hemodynamically stable. On 10/09/2023, the patient is being seen for a follow-up. The patient is post left hip ORIF/hemiarthroplasty and the patient is currently postop day #1. Surgery was done on 10/08/2023 without any significant complications. The patient is currently resting comfortably in bed. No active pain. She is currently on 3 Suboxone by nasal cannula with pulse ox of 92%. Respiratory status is stable. Hemodynamically stable. The white cell count at 6.7 with a hemoglobin 13.8 and a platelet count of 191. Adequate pain control and the patient is currently on [place]. She remains on normal citrate of 65 cc an hour. She remains on anticoagulation with Eliquis 2.5 mg twice a day. She remains on DuoNeb nebulized treatments [id number]. Using incentive spirometer. On 10/10/2023, the patient doing well. No specific complaints. He is on 2 L of oxygen by nasal cannula. She is ambulating with the help of a walker. She is active. No respiratory distress. Remains on bronchodilators. Remains on Eliquis 2.5 mg twice a day. Adequate pain control. IV fluids are normal citrate of 50 cc an hour. No new labs are available from today. Condition is stable. Vitals are stable. Remains constipated. The patient is postop day #2 following a left hip hemiarthroplasty. On 10/11/2023, the patient is calm and comfortable, ambulating with a walker, remains on room air oxygen with a pulse ox of 91%. Hemodynamically stable. The white cell count is 5 with hemoglobin 12.8 and a platelet count of 213. No issues with pain. No signs of any delirium tremens. Condition is stable. Patient is postop day #3 following a left hip hemiarthroplasty. Objective - Vital Signs Vital signs: Vital Signs Temp 98.6 F 10/11/23 06:58 Pulse 83 10/11/23 06:58 Resp 17 10/11/23 06:58 BP 126/83 10/11/23 06:58 Pulse Ox 91 L 10/11/23 06:58 FiO2 Intake & Output 10/10/23 10/11/23 10/11/23 18:59 06:59 18:59 Other: Voiding Method Toilet # Voids 1 3 - Exam Patient is awake, alert, and oriented 3, currently on 3 L oxygen by nasal cannula. Head exam was generally normal. There was no scleral icterus or corneal arcus. Mucous membranes were moist. Neck was supple and without jugular venous distension, thyromegaly, or carotid bruits. Carotids were easily palpable bilaterally. There was no adenopathy. Lung sounds are diminished bilaterally along with few scattered expiratory wheezes Cardiac exam revealed the PMI to be normally situated and sized. The rhythm was regular and no extrasystoles were noted during several minutes of auscultation. The first and second heart sounds were normal and physiologic splitting of the second heart sound was noted. There were no murmurs, rubs, clicks, or gallops. Abdominal exam revealed normal bowel sounds. The abdomen was soft, non-tender, and without masses, organomegaly, or appreciable enlargement of the abdominal aorta. Left lower extremity is shortened and externally rotated with her hip flexed Pain with palpation of the left hip Significant pain with internal and external rotation of the left hip No pain with internal and external rotation of the right hip Neurovascularly intact bilateral lower extremities Dorsiflexion, plantarflexion, and extensor hallucis longus positive sustained bilaterally Calves are soft and supple; No signs or symptoms of DVT; No calf pain - Labs CBC & Chem 7: 10/11/23 06:42 10/07/23 04:37 Labs: Abnormal Lab Results - Last 24 Hours (Table) 10/11/23 Range/Units 06:42 RBC 3.94 L (4.10-5.20) X 10*6/uL MCV 98.2 H (80.0-97.0) FL MCH 32.5 H (27.0-32.0) pg Assessment and Plan Plan: Acute left subcapital hip fracture secondary to fall, completed left hip hemiarthroplasty and the patient is currently postop day #3 Left hip pain secondary to above, improved and the patient is currently on [place] Acute alcohol intoxication, possibly compounded by alcoholism, no signs of any alcohol withdrawal COPD with history of tobacco marijuana smoking, stable no signs of any COPD exacerbation. Patient is currently on 2 l of oxygen by nasal cannula Hypertension Diabetes mellitus Hypertension thyroidism maintained on methimazole on outpatient basis History of interstitial cystitis Plan Oxygenation is stable, currently on 2 L of oxygen by nasal cannula and the patient has been transitioned to room air oxygen. Continue using incentive spirometer Chest x-ray showed no acute abnormalities We will continue watching for any signs of delirium tremens Surgery was completed without any major respiratory complications Continue [facility] Continue anticoagulation with Eliquis 2.5 mg twice a day Surgical scar is dry clean and intact Outpatient medication resumed Walking with the help of a walker Will continue to follow
[2023-10-11 15:26] VITALS: BP 114/76; PULSE 82; TEMP 97.6
--- NOTE | 2023-10-11 16:05 | P.DS ---
Providers Date of admission: 10/07/23 04:19 Attending physician: Pino Marquez Consults: 10/07/23 04:17 Consult Physician Urgent Consulting Provider: Pradeep Renteria Consult Reason/Comments: Surgical clearance Do you want consulting provider notified?: Yes, Notify in am 10/07/23 08:45 Consult Physician Urgent Consulting Provider: Dexter Borja Consult Reason/Comments: pre op evaluation Do you want consulting provider notified?: Yes Primary care physician: Eugene Rockwell - Discharge Diagnosis(es) (1) Fracture of hip Current Visit: Yes Status: Acute Hospital Course: Patient is a 68-year-old female with past medical history of COPD, diabetes mellitus, hypertension, renal disease, and thyroid disease, who presented to the [facility] ER on 10/07/2023 after a fall for left hip pain. She was found to have a left subcapital hip fracture. On 10/08/2023 they underwent hemiarthroplasty of the left hip with a direct anterior approach. They tolerated the procedure well. There were transferred to the floor. On postop day 1 patient was sore but was able to ambulate with assistance. On postop day 2 patient was evaluated, they were ambulating much better, but continued to be sore and painful. On postop day 3 patient was evaluated at bedside, they were sitting on the edge of bed. They were awake and alert and able to answer questions. They state their pain is much better than it was previously. They state they are able to ambulate to the bathroom with a walker on their own now and have been ambulating down the hallway and back on their own. They state that they feel they are ready to be discharged home. They state that their daughter will be staying with them during their recovery. Their daughter was in the room and agrees with this plan. Assessment: POD3 status post left hip hemiarthroplasty for Subcapital fracture of the left hip Patient Condition at Discharge: Fair Plan - Discharge Summary New Discharge Prescriptions: New Apixaban [Eliquis] 2.5 mg PO BID #60 tab HYDROcodone/APAP 7.5-325MG [[place] 7.5-325] 1 each PO Q6HR PRN #32 tab PRN Reason: Pain Sennosides-Docusate Sodium [Senokot-S] 1 tab PO BID PRN #60 tablet PRN Reason: Constipation No Action amLODIPine BESYLATE [Norvasc] 5 mg PO QAM Pantoprazole [Protonix] 40 mg PO DAILY cefUROXime axetiL [Ceftin] 500 mg PO BID methIMAzole [Tapazole] 5 mg PO DAILY Folic Acid 0.4 mg PO DAILY hydrOXYzine HCL [Atarax] 25 mg PO DAILY Discharge Medication List amLODIPine BESYLATE [Norvasc] 5 mg PO QAM 01/06/18 [History] Pantoprazole [Protonix] 40 mg PO DAILY 12/16/18 [History] Folic Acid 0.4 mg PO DAILY 01/21/23 [History] methIMAzole [Tapazole] 5 mg PO DAILY 01/21/23 [History] cefUROXime axetiL [Ceftin] 500 mg PO BID 10/07/23 [History] hydrOXYzine HCL [Atarax] 25 mg PO DAILY 10/07/23 [History] Apixaban [Eliquis] 2.5 mg PO BID #60 tab 10/11/23 [Rx] HYDROcodone/APAP 7.5-325MG [[place] 7.5-325] 1 each PO Q6HR PRN #32 tab 10/11/23 [Rx] Sennosides-Docusate Sodium [Senokot-S] 1 tab PO BID PRN #60 tablet 10/11/23 [Rx] Follow up Appointment(s)/Referral(s): [facility], [NON-STAFF] - As Needed Pino Marquez DO [Doctor of Osteopathic Medicine] - 2 Weeks Eugene Rockwell DO [Primary Care Provider] - 1-2 days Activity/Diet/Wound Care/Special Instructions: Weightbearing as tolerated with walker. Leave dressing intact. Dressing may be removed by home care nurse or by patient in 7 days. Then change dressing twice daily until follow up. May shower with initial dressing intact and after removal. If dressing become saturated, please remove. Please take Eliquis twice daily for 30 days to prevent blood clots. Recommend use of compression stockings daily until follow up to help prevent swelling and blood clots. May remove at night before sleeping. Please follow-up with [facility] in 2 weeks and call with any questions or concerns, . Discharge Disposition: HOME WITH HOME HEALTH SERVICES
--- NOTE | 2023-10-12 06:36 | P.PN ---
Subjective THIS IS A PLEASANT 67 YEARS OLD FEMALE LVH and with past medical history of alcohol use disorder, everyday smoker, Hypertension, diabetes/prediabetes, GERD, memory impairment and thyroid disease. She presents because of hip fracture after she fell at home. Patient states that she drinks every day and yesterday she drank about 5-7 drinks of whiskey and she was trying to reach out to her child to feed her when she fell on her side followed by pain on her right of the chest and her left hip area and she describes. Also her left leg is flexed at the hip.Patient describes her pain as 10/10 and especially with movement but if she stays still she will feel fine. Patient currently states she is fully awake and oriented, in mild distress due to to pain. She is also Hoarseness of voice She states that she has some shortness of breath but currently it is not bad. She has been using nebulizer twice last week after a friend gave her that ne bulizer last year. She has also some cough and occasional phlegm but no dizziness She is complaining from chest pain on both sides of the lower rib cage, she states that it happened after the fall. Also during talking she becomes a little bit short of breath. She used to smoke 1 pack/day for 48 years. She also admits to using marijuana at times. Patient counseled to quit smoking and she agrees and she agrees to the nicotine patch. Patient saw her ENT doctor last for hoarseness of voice and they found a polyp and prescribed her antibiotic but she has not taken it yet Patient vitals are reviewed, currently afebrile her oxygen little bit on the low side 92% on room air Labs were unremarkable including CBC, BMP, LFT, INR, urine analysis X-ray showing acute slightly impacted subcapital fracture of the left hip Chest x-ray showing mild cardiomegaly with no pulmonary vascular congestion, I reviewed the chest x-ray with me there is also some chronic COPD changes 10/12/2023 Patient awake at baseline Some pain from surgery site Patient overall feels fine but has difficulty moving due to her surgery and weakness Patient will benefit from rehab upon discharge. No significant wheezing and the hoarseness of the voice on day 1 significantly improved today. 10/10/23 Patient seen walking in the room using a walker, she still has difficulty lifting her left leg compared to the right side. She still have some significant pain but better than 1 to 2 days ago. She wants to go home but she is scared and she might consider rehab She is still constipated despite stool softeners and prune juice, she agrees to lactulose. 10/11/2023 Patient today seen and examined at bedside She looks more energetic more easy for her to move her legs. She denies any other specific complaint She is hemodynamically stable She thinks she can go home with home care. Medically she is a stable Objective - Vital Signs Vital signs: Vital Signs Temp 98.6 F 10/11/23 06:58 Pulse 83 10/11/23 06:58 Resp 17 10/11/23 06:58 BP 126/83 10/11/23 06:58 Pulse Ox 91 L 10/11/23 06:58 FiO2 Intake & Output 10/10/23 10/11/23 10/11/23 18:59 06:59 18:59 Other: Voiding Method Toilet # Voids 1 3 - Exam GENERAL: The patient is alert and oriented x3, not in any acute distress. Well developed, well nourished. HEENT: Pupils are round and equally reacting to light. EOMI. No scleral icterus. No conjunctival pallor. Normocephalic, atraumatic. No pharyngeal erythema. No thyromegaly. CARDIOVASCULAR: S1 and S2 present. No murmurs, rubs, or gallops. PULMONARY: Chest is clear to auscultation, no wheezing , no crackles. ABDOMEN: Soft, nontender, nondistended, normoactive bowel sounds. No palpable organomegaly. -MUSCULOSKELETAL: No joint swelling or deformity. Surgical wound at hip area is dry and clean, rest of exam deferred to surgery team EXTREMITIES: No cyanosis, clubbing, or pedal edema. NEUROLOGICAL: Gross neurological examination did not reveal any focal deficits. SKIN: No rashes. no petechiae. - Labs CBC & Chem 7: 10/11/23 06:42 10/07/23 04:37 Labs: Abnormal Lab Results - Last 24 Hours (Table) 10/11/23 Range/Units 06:42 RBC 3.94 L (4.10-5.20) X 10*6/uL MCV 98.2 H (80.0-97.0) FL MCH 32.5 H (27.0-32.0) pg Assessment and Plan Assessment: Fall without syncope at home while alcoholic intoxicated Alcohol use disorder at risk of alcohol withdrawal Acute left hip subcapital mildly impacted fracture Stridor with recent history of polyp in the larynx as per patient History of thyroid disease Hypertension COPD suspected, possible mild exacerbation Diabetes/prediabetes currently not on medication GERD Memory impairment Plan: Continue CIWA protocol Thiamine Continue bronchodilator pulmonary team on the case Labs and medication were reviewed.. Continue same treatment. Continue with symptomatic treatment. Resume home medication. Monitor labs and vitals. DVT and GI prophylaxis. Further recommendations as per clinical course of the sania gill DVT prophylaxis: deferred to surgery team GI Prophylaxis: Pepcid PT/OT: Pending
== END 2023-10-11 16:19 | disposition home health service (06) | DRG 522 ==
LOC: EC 02:11 → 4SSUR 04:19
PROVIDERS: ADMIT Orthopaedic Surgery; ATTEND Orthopaedic Surgery
PROC: 0SRS01A Replacement of Left Hip Joint, Femoral Surface with Metal Synthetic Substitute, Uncemented, Open Approach (ICD-10-PCS; principal; 2023-10-08 15:30)
DX: S72.012A Unspecified intracapsular fracture of left femur, initial encounter for closed fracture (principal); E11.22 Type 2 diabetes mellitus with diabetic chronic kidney disease; N30.10 Interstitial cystitis (chronic) without hematuria; I12.9 Hypertensive chronic kidney disease with stage 1 through stage 4 chronic kidney disease, or unspecified chronic kidney disease; F10.129 Alcohol abuse with intoxication, unspecified; J44.9 Chronic obstructive pulmonary disease, unspecified; N18.2 Chronic kidney disease, stage 2 (mild); R49.0 Dysphonia; E07.9 Disorder of thyroid, unspecified; K21.9 Gastro-esophageal reflux disease without esophagitis; K59.00 Constipation, unspecified; I83.90 Asymptomatic varicose veins of unspecified lower extremity; F17.210 Nicotine dependence, cigarettes, uncomplicated; Z71.6 Tobacco abuse counseling; Z79.899 Other long term (current) drug therapy; W01.0XXA Fall on same level from slipping, tripping and stumbling without subsequent striking against object, initial encounter; Y92.009 Unspecified place in unspecified non-institutional (private) residence as the place of occurrence of the external cause; Z91.81 History of falling
CPT/HCPCS: 36415; 51702; 64447; 71045; 73501; 73502; 80053; 81003; 83880; 84443; 85025; 85610; 85730; 86850; 86900; 86901; 96372; 96374; 99285

== ENCOUNTER → 2024-07-09 | Outpatient (CLI) | payer MEDICARE ==
--- NOTE | 2024-07-09 14:51 | CTL ---
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 TECHNIQUE: Low dose computed tomography scan was performed through the chest at 1 mm thick sections a nd reconstructed images in multiple planes at 1 mm and [address] DLP: 40.[address] CTDI: 1.20 mGy Automated exposure control for dose reduction was used. 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 Comparison: None TECHNIQUE: Low dose computed tomography scan was performed through the chest at 1 mm thick sections a nd reconstructed images in multiple planes at 1 mm and [address] DIAGNOSTIC QUALITY: Satisfactory FINDINGS: There are moderate to marked emphysematous changes with an upper lobe predominance. There is mild ple ural parenchymal scarring in the apices. There are multiple innumerable sub-3 mm nodules and micronodules. The index nodule is a 6 mm nodule i n the left lower lobe. There is no airspace consolidation or abnormal interstitial density. Great vessels the chest are normal. There is no mediastinal, hilar or axillary adenopathy. There is no pleural effusion, pleural thickening or pneumothorax. No focal osseous lesions are seen. Limited scans the upper abdomen reveals no gross abnormality IMPRESSION: 1. Lung rads category 3, probably benign left lower lobe 6 mm nodule. Follow-up CT thorax in 6 months is recommended to confirm stability. 2. No acute cardiopulmonary disease. 3. Moderate to marked emphysematous changes with an upper lobe predominance and mild pleural-parenchy mal scarring in the apices. [facility], , 07/09/2024 2:48 PM
--- NOTE | 2024-07-09 15:08 | MM ---
Reason for Exam: Screening (asymptomatic). Last mammogram was performed 5 year(s) and 9 month(s) ago. Patient History: Menarche at age 14. First Full-Term at age 20. Left ovary removed at age 48. Right ovary removed at age 48. Hysterectomy at age 48. Postmenopausal. Other cancer. Currently using Estrogen, beginning at age 48 for 12 years. Hormonal Contraceptives for 1 month from age 18 until age 18. Benign Excisional Biopsy on the left side. 02/09/2005, Excisional Biopsy on the Right side. Benign Excisional Biopsy on the right side. Paternal aunt had breast cancer, age 50. Paternal aunt had breast cancer, age 40. Risk Values: [place] 5 year model risk: 1.8%. NCI Lifetime model risk: 6.3%. Prior Study Comparison: 03/16/2016 Bilateral Screening Mammogram, [facility]. 03/20/2016 Bilateral Diagnostic Mammogram, [facility]. 10/28/2018 Bilateral Screening Mammogram, [facility]. Tissue Density: There are scattered areas of fibroglandular density. Findings: Analyzed By CAD. There is no suspicious group of microcalcifications or new suspicious mass in either breast. Overall Assessment: Benign, BI-RAD 2 Management: Screening Mammogram of both breasts in 1 year. . Patient should continue monthly self-breast exams. A clinical breast exam by your physician is recommended on an annual basis. This exam should not preclude additional follow-up of suspicious palpable abnormalities. Note on [place] scores and lifetime risk: 1. A [place] score greater than 3% is considered moderate risk. If this is the case, consider specialist referral to assess eligibility for a risk reducing agent. 2. If overall lifetime risk for the development of breast cancer is 20% or higher, the patient may qualify for future screening with alternating mammogram and breast MRI. [facility], , 07/09/2024 3:05 PM. Electronically signed and approved by: Darwin Atkins M.D. [facility]
== END | disposition home or self-care (01) ==
LOC: RADCTMAIN 14:03
PROVIDERS: ATTEND Family Medicine
DX: Z12.31 Encounter for screening mammogram for malignant neoplasm of breast (principal); Z12.2 Encounter for screening for malignant neoplasm of respiratory organs; F17.210 Nicotine dependence, cigarettes, uncomplicated; R92.323 Mammographic fibroglandular density, bilateral breasts; J43.9 Emphysema, unspecified; Z92.0 Personal history of contraception; Z80.3 Family history of malignant neoplasm of breast; Z78.0 Asymptomatic menopausal state
CPT/HCPCS: 71271; 77063; 77067